=== PATIENT | male | born 1950 | race African-American/Black ===

== ENCOUNTER 2017-04-30 09:14 | Observation (INO) | payer OTHER, BC ==
[2017-04-30 09:26] VITALS: BMI 26.7
[2017-04-30 10:21] LABS: BASOPHIL 0.3 % (0-2.0); EOSINOPHIL 0.4 % (0-4.5); MCH 25.7 pg (25.7-33.7); MCHC 31.9 g/dl (32.0-35.9); MEAN CELL VOLUME 80.4 fl (80-96); MEAN PLT VOLUME 7.2 fl (7.5-11.1); PLATELET COUNT 175 K/MM3 (134-434); RDW 17.1 % (11.9-15.9); WHITE BLOOD COUNT 13.8 K/mm3 (4.0-10.0)
[2017-04-30 10:38] LABS: INR 1.41 (0.82-1.09); PROTHROMBIN TIME (PATIENT) 15.6 SEC (9.98-11.88)
--- NOTE | 2017-04-30 10:38 | PDOC ---
Attending Attestation - Resident Resident Name: DavidScottieFlash - ED Attending Attestation I have performed the following: I have examined & evaluated the patient, The case was reviewed & discussed with the resident, I agree w/resident's findings & plan, Exceptions are as noted - HPI HPI: 04/30/17 10:32 66 year old male with past medical history of coronary disease status post CABG , mitral valve replacement on a requests, prior history of intracranial hemorrhage and stroke presents with lower extremity swelling and generalized weakness. The patient reports one month of increasing lower extremity edema which has been attempted to manage as an outpatient with oral medications, which I suspect are diuretics. Patient then noticed today that his chronic left sided weakness has worsened and noticed that his lower extremities were tingling but denies worsening numbness. States that his lower extremities were were swollen with right more to the left. Denies chest pain or shortness of breath. Denies recent illnesses fevers, chills, cough. Given his generalized weakness and increasing lower extremity edema, the patient came into the ED. - Physicial Exam PE: 04/30/17 10:32 GENERAL: Awake, alert, and fully oriented, in no acute distress. But appears generally weak and chronically debilitated. HEAD: No signs of trauma EYES: PERRLA, EOMI, sclera anicteric, conjunctiva clear ENT: Auricles normal inspection, hearing grossly normal, nares patent, oropharynx clear without exudates. NECK: Normal ROM, supple, no lymphadenopathy, JVD, or masses LUNGS: Breath sounds equal, clear to auscultation bilaterally. No wheezes, and no crackles HEART: Regular rate and rhythm, normal S1 and S2, no murmurs, rubs or gallops. Tachycardic. ABDOMEN: Soft, nontender, normoactive bowel sounds. No guarding, no rebound. No masses EXTREMITIES: Normal range of motion, No clubbing or cyanosis. No cords, erythema , or tenderness. Mild pedal edema bilaterally. Facundo sign negative. NEUROLOGICAL: Cranial nerves II through XII intact. Normal speech, normal gait. No pronator drift, 5/5 strength upper and lower extremities. Sensation intact everywhere. Speech normal. 4/5 strength LLE vs. 5/5 strength RLE. SKIN: Warm, Dry, normal turgor, no rashes or lesions noted. - Medical Decision Making 04/30/17 10:36 Vital Signs Temp Pulse Resp BP Pulse Ox 97.9 F 102 H 18 121/71 99 04/30/17 10:30 04/30/17 10:30 04/30/17 10:30 04/30/17 10:30 04/30/17 10:30 The patient overall appears deconditioned. The differential is broad and includes cardiac, neurologic including recurrence of intracranial hemorrhage, CVA, infectious or metabolic. We'll obtain duplex to rule out lower extremity DVTs. The patient has been complaint but lower extremity edema which may be secondary to cardiac such as congestive heart failure. Reassess. Incidentally, patient is also been complained about right elbow olecranon bursitis. No fevers or chills. No overlying erythema. Supportive care ( compression). 04/30/17 11:26 CBC, BMP 04/30/17 10:15 04/30/17 10:15 CMP Sodium 136 mmol/L (136-145) 04/30/17 10:15 Potassium 4.7 mmol/L (3.5-5.1) 04/30/17 10:15 Chloride 102 mmol/L (98-107) 04/30/17 10:15 Carbon Dioxide 26 mmol/L (21-32) 04/30/17 10:15 Anion Gap 8 (8-16) 04/30/17 10:15 BUN 27 mg/dL (7-18) H D 04/30/17 10:15 Creatinine 1.9 mg/dL (0.7-1.3) H D 04/30/17 10:15 Creat Clearance w eGFR 35.64 (>60) 04/30/17 10:15 Random Glucose 99 mg/dL (74-106) D 04/30/17 10:15 Calcium 9.1 mg/dL (8.5-10.1) D 04/30/17 10:15 Phosphorus 2.9 mg/dL (2.5-4.9) D 04/30/17 10:15 Magnesium 1.9 mg/dL (1.8-2.4) D 04/30/17 10:15 Total Bilirubin 1.0 mg/dL (0.2-1.0) D 04/30/17 10:15 AST 18 U/L (15-37) D 04/30/17 10:15 ALT 26 U/L (12-78) D 04/30/17 10:15 Alkaline Phosphatase 150 U/L (45-117) H D 04/30/17 10:15 Creatine Kinase 90 IU/L (39-308) 04/30/17 10:15 Troponin I < 0.02 ng/ml (0.00-0.05) D 04/30/17 10:15 B-Natriuretic Peptide 706.42 pg/ml (5-125) H 04/30/17 10:15 Total Protein 7.4 g/dl (6.4-8.2) D 04/30/17 10:15 Albumin 3.4 g/dl (3.4-5.0) D 04/30/17 10:15 Urine Test Results Urine Color Yellow 04/30/17 10:07 Urine Appearance Cloudy 04/30/17 10:07 Urine pH 8.0 (5.0-8.0) D 04/30/17 10:07 Urine Protein 1+ (NEGATIVE) H 04/30/17 10:07 Urine Glucose (UA) Negative (NEGATIVE) 04/30/17 10:07 Urine Ketones Negative (NEGATIVE) 04/30/17 10:07 Urine Blood 1+ (NEGATIVE) H 04/30/17 10:07 Urine Nitrite Negative (NEGATIVE) 04/30/17 10:07 Urine Bilirubin Negative (NEGATIVE) 04/30/17 10:07 Ur Leukocyte Esterase 3+ (NEGATIVE) H 04/30/17 10:07 Urine RBC 6 /hpf (0-3) 04/30/17 10:07 Urine WBC 464 /hpf (3-5) 04/30/17 10:07 Ur Epithelial Cells Rare /hpf (FEW) 04/30/17 10:07 Urine Bacteria Rare /hpf (NONE SEEN) 04/30/17 10:07 Urine Mucus Rare 04/30/17 10:07 Chest x-ray reviewed. Demonstrates cardiomegaly. Patient noted here to have an elevated white count 13 and an urinary tract infection with acute kidney injury. Though the BNP is elevated, I suspect the patient is clinically dry. We'll trial 500 mL of normal saline. Micrology reviewed which demonstrates history of staph aureus. It is sensitive to ceftriaxone. We'll write for ceftriaxone. We'll admit the patient to the hospital for further evaluation. Heart Score/ECG Review #1 ECG reviewed & interpreted by me at: 10:25 04/30/17 10:35 NSR 100, no std/janie, Q wave II, III, avF, no std/janie, T wave flat I, AVL, QTC 459 msec. Q wave Q6.
[2017-04-30 10:46] LABS: ALBUMIN 3.4 g/dl (3.4-5.0); ANION GAP 8 (8-16); CALCIUM 9.1 mg/dL (8.5-10.1); CO2 26 mmol/L (21-32); CREATININE 1.9 mg/dL (0.7-1.3); GLUCOSE,RANDOM 99 mg/dL (74-106); SGOT/AST 18 U/L (15-37); SGPT/ALT 26 U/L (12-78); TOT PROT 7.4 g/dl (6.4-8.2)
[2017-04-30 10:48] LABS: ALK PHOS 150 U/L (45-117); CPK 90 IU/L (39-308); TROPONIN I < 0.02 ng/ml (0.00-0.05)
--- NOTE | 2017-04-30 10:51 | PDOC ---
History of Present Illness - General Chief Complaint: Weakness Stated Complaint: PAIN Time Seen by Provider: 04/30/17 09:38 - History of Present Illness Initial Comments: 04/30/17 10:45 66 yo M with h/o ICH, SAH, MVR, and CABG who presents with lower extremity pain and weakness. Pt. reports increased lower extremity swelling and pain over the past month. Has noticed that right leg is more swollen than left leg. Denies burning of distal extremities. Also complains of increased tingling without no change in numbness within the past week. Today pt. notices increased left sided weakness from baseline. Denies SOB, N/V, hemoptysis, fevers/chills, GI, or complaints. Recently switched to Eliquis from Warfarin. Denies recent trauma or surgery, h/o malignancy, h/o DVT/PE, or plane flights. Reports that he took 10 hour trip to [facility] March 02. PCP Víctor Leon 04/30/17 12:17 Past History - Past Medical History Allergies/Adverse Reactions: Allergies Allergy/AdvReac Type Severity Reaction Status Date / Time No Known Allergies Allergy Verified 04/30/17 09:26 Home Medications: Ambulatory Orders Apixaban [Eliquis] 5 mg PO BID 04/30/17 Doxycycline Monohydrate [Mondoxyne Nl] 0 mg PO BID 04/30/17 Furosemide [Lasix] 40 mg PO DAILY 04/30/17 Levetiracetam [Keppra -] 1,250 mg PO DAILY 04/30/17 Potassium Chloride [K-Dur -] 0 meq PO DAILY 04/30/17 Cardiac Disorders: Yes (MVP-VALVE REPLACED) CVA: Yes - Surgical History Cardiac Surgery: Yes (MVP-VALVE REPLACED-ON COUMADIN) - Psycho/Social/Smoking Cessation Hx Suicidal Ideation: No Smoking History: Current every day smoker Have you smoked in the past 12 months: Yes Number of Cigarettes Smoked Daily: 10 Information on smoking cessation initiated: No Hx Alcohol Use: No Drug/Substance Use Hx: No Review of Systems - Review of Systems Comments:: 04/30/17 10:57 GENERAL/CONSTITUTIONAL: No fever or chills. No weakness. HEAD, EYES, EARS, NOSE AND THROAT: No change in vision. No ear pain or discharge. No sore throat.- CARDIOVASCULAR: No chest pain or shortness of breath RESPIRATORY: No cough, wheezing, or hemoptysis. GASTROINTESTINAL: No nausea, vomiting, diarrhea or constipation. GENITOURINARY: No dysuria, frequency, or change in urination. MUSCULOSKELETAL: + Leg swelling pain. No joint or muscle swelling or pain. No neck or back pain. SKIN: No rash NEUROLOGIC: No headache, vertigo, loss of consciousness, or change in strength/ sensation. ENDOCRINE: No increased thirst. No abnormal weight change HEMATOLOGIC/LYMPHATIC: No anemia, easy bleeding, or history of blood clots. ALLERGIC/IMMUNOLOGIC: No hives or skin allergy. *Physical Exam - Vital Signs Last Vital Signs Temp Pulse Resp BP Pulse Ox 97.9 F 102 H 18 121/71 99 04/30/17 10:30 04/30/17 10:30 04/30/17 10:30 04/30/17 10:30 04/30/17 10:30 - Physical Exam Comments: 04/30/17 10:57 GENERAL: Awake, alert, and fully oriented, in no acute distress HEAD: No signs of trauma, normocephalic, atraumatic EYES: PERRLA, EOMI, sclera anicteric, conjunctiva clear ENT: Auricles normal inspection, hearing grossly normal, nares patent, oropharynx clear without exudates. Moist mucosa NECK: Normal ROM, supple, no lymphadenopathy, JVD, or masses LUNGS: No distress, speaks full sentences, clear to auscultation bilaterally HEART: Regular rate and rhythm, normal S1 and S2, no murmurs, rubs or gallops, peripheral pulses normal and equal bilaterally. EXTREMITIES: Normal inspection, Normal range of motion, no edema. No clubbing or cyanosis. NEUROLOGICAL: 4/5 LLE gross motor strenght. 5/5 UE and RLE. Sensation intact. Normal DIEUDONNE, and absent dysmetria on FTN. Cranial nerves II through XII grossly intact. Normal speech, normal gait, no focal sensorimotor deficits SKIN: Warm, Dry, normal turgor, no rashes or lesions noted. Heart Score/ECG Review - History History: Slightly suspicious - Electrocardiogram EKG: Non specific repolarization disturbance - Age Age: >/= 65 - Risk Factors Risk Factors Heart Score: Yes Hx Hypertension, Yes Hx Diabetes, Yes Positive family hx of cardiac disease Based on the list above the patient has:: >/=3 risk factors or Hx atherosclerotic disease - Troponin Troponin: </= normal limit - Score Heart Score - Total: 5 - ECG Intrepretation Rhythm: Regular Rhythm - [place]: Left [place] Deviation - P and ND Atrial Enlargement: Left - ECG Impressions Ischemic Changes: Yes ED Treatment Course - LABORATORY CBC & Chemistry Diagram: 04/30/17 10:15 04/30/17 10:15 - ADDITIONAL ORDERS Additional order review: Laboratory Results 04/30/17 04/30/17 10:15 10:15 INR 1.41 H Creatine Kinase Cancelled Troponin I Cancelled B-Natriuretic Peptide Cancelled 04/30/17 10:15 RBC 4.94 MCV 80.4 MCHC 31.9 L RDW 17.1 H MPV 7.2 L D Neutrophils % 77.0 Lymphocytes % 10.8 D Monocytes % 11.5 H D Eosinophils % 0.4 D Basophils % 0.3 - RADIOLOGY Radiology Studies Ordered: Category Date Time Status CXRPORT [CHEST X-RAY PORTABLE*] [RAD] Stat Radiology 04/30/17 10:07 Taken DUPLEX VASCUL US-2LEGS [US] Stat Ultrasound 04/30/17 10:07 Ordered Radiograph Interpretation: 04/30/17 12:41 EXAM#: TYPE/EXAM: RESULT: [id number] CT/HEAD CT WITHOUT CONTRAST Cranial CT without contrast Clinical information: history of intracranial hemorrhage, increased left-sided weakness No current intracranial hemorrhage is infarct. In comparison to a prior CT study of 11/07/2016 there has been interval resolution of a small amount of subarachnoid blood and parenchymal blood along the frontoparietal convexities bilaterally and within the left occipital lobe. At the site of a right posterior frontal subcortical hemorrhage note is made of development of a 1.5 cm focus of encephalomalacia. The remainder of the exam demonstrates no definite interval change. No acute infarct is identified within the limitations of CT. Chronic left basal ganglia infarcts. Left frontal parietal subcortical gliosis probably due to chronic infarcts. Mild ex-vacuo dilatation of the frontal horn of the left lateral ventricle due to adjacent chronic infarct. No obvious mass lesion is identified on noncontrast imaging. There is no extra-axial fluid collection. Impression: No definite CT evidence of acute intracranial pathology. Chronic findings as discussed above. Medical Decision Making - Medical Decision Making 04/30/17 10:59 66 yo M with h/o ICH, SAH, MVR, and CABG who presents with lower extremity pain and weakness. Pt. reports increased weakness and lower extremity swelling and pain over the past month. Differential includes CVA, ICH, CHF exacerbation and possible infection. ED Course: CBC, CMP, UA, Cardiac labs EKG, CXR CT head BL LE U/S UA: 3 + Leuk Esterase, 1+ blood CBC: 13.8 WBC CMP: 27 BUN, 1.9 CR 1 gm IVPB Ceftriaxone, 500 ml NS 04/30/17 11:43 Heart Score 4-6 ( MACE 13%) CT Head: Impression: No definite CT evidence of acute intracranial pathology. 04/30/17 14:08 Duplex vascular U/S 2 Legs: No evidence of DVT 04/30/17 14:[address] Rousseau. *DC/Admit/Observation/Transfer Diagnosis at time of Disposition: BILLY (acute kidney injury) - Discharge Dispostion Condition at time of disposition: Good Admit: Yes
[2017-04-30 10:55] LABS: URINE APPEARANCE CLOUDY; URINE BILIRUBIN NEGATIVE (NEGATIVE); URINE BLOOD 1+ (NEGATIVE); URINE COLOR YELLOW; URINE GLUCOSE (UA) NEGATIVE (NEGATIVE); URINE KETONE NEGATIVE (NEGATIVE); URINE LEUK ESTERASE 3+ (NEGATIVE); URINE NITRITE NEGATIVE (NEGATIVE); URINE PROTEIN 1+ (NEGATIVE); URINE UROBILINOGEN NEGATIVE mg/dL (0.2-1.0)
[2017-04-30 11:03] LABS: URINE BACTERIA RARE /hpf (NONE SEEN); URINE HYALINE CAST 2 /lpf; URINE MUCUS RARE; URINE RBC 6 /hpf (0-3); URINE WBC 464 /hpf (3-5)
[2017-04-30] MEDS ORDERED: SODIUM CHLORIDE 500 ML IV STA (11:09)
[2017-04-30] MEDS ORDERED: CEFTRIAXONE 1 GM in DEXTROSE 5%-WATER - 50 ML IVPB ONE (11:09)
[2017-04-30 11:11] LABS: MAGNESIUM 1.9 mg/dL (1.8-2.4); PHOSPHOROUS 2.9 mg/dL (2.5-4.9)
[2017-04-30] MEDS ORDERED: CEFTRIAXONE 50 ML ONE (11:21)
[2017-04-30] MEDS ORDERED: ACETAMINOPHEN 325 MG TABLET (FP) PO PRN (13:58)
--- NOTE | 2017-04-30 14:29 | HP ---
Admitting History and Physical - Primary Care Physician PCP: Riaz Manley - Admission Chief Complaint: weakness in legs/ History of Present Illness: 66 yo M with h/o ICH, SAH,--11/10-- was transferred to [facility] at that time-- MVR,-- pt reports mechanical valve was taken out in 11/10 - and pig valve was placed -- CABG who presents with lower extremity pain and weakness. Pt. reports increased lower extremity swelling and pain over the past month. Has noticed that right leg is more swollen than left leg. Denies burning of distal extremities. Also complains of increased tingling without no change in numbness within the past week. Today pt. notices increased left sided weakness from baseline. Denies SOB , N/V, hemoptysis, fevers/chills, GI, or complaints. Recently switched to Eliquis from Warfarin last month by his pmd Denies recent trauma or surgery, h/o malignancy, h/o DVT/PE, or plane flights. Reports that he took 10 hour trip to [facility] March 02. pt given i/v abx for uti in er as well as received fluids. ct head -ve as well as u/s -ve for dvt. pt to be kept under observation . pt seen/ examined by me on floor above history taken from pt meds reviewed pt not sure about all meds but says not taking doxycycline pt feels better. denies cp/sob/ abd pain no headche/ dizziness no u/b trouble no fever/ chills History Source: Patient Limitations to Obtaining History: No Limitations - Past Medical History [employer]: Yes: CVA Cardiovascular: Yes: HTN, Other (mechanical mitral valve) Gastrointestinal: Yes: GERD Renal/: Yes: Renal Inusuff - Smoking History Smoking history: Current every day smoker Have you smoked in the past 12 months: Yes Aproximately how many cigarettes per day: 10 - Alcohol/Substance Use Hx Alcohol Use: No Home Medications - Allergies Allergies/Adverse Reactions: Allergies Allergy/AdvReac Type Severity Reaction Status Date / Time No Known Allergies Allergy Verified 04/30/17 09:26 - Home Medications Home Medications: Ambulatory Orders Apixaban [Eliquis] 5 mg PO BID 04/30/17 Doxycycline Monohydrate [Mondoxyne Nl] 0 mg PO BID 04/30/17 Furosemide [Lasix] 40 mg PO DAILY 04/30/17 Levetiracetam [Keppra -] 1,250 mg PO DAILY 04/30/17 Potassium Chloride [K-Dur -] 0 meq PO DAILY 04/30/17 Review of Systems Findings/Remarks: see [place] - Review of Systems Constitutional: reports: Weakness Eyes: reports: No Symptoms HENT: reports: No Symptoms Neck: reports: No Symptoms Cardiovascular: reports: No Symptoms Respiratory: reports: No Symptoms Gastrointestinal: reports: No Symptoms Genitourinary: reports: No Symptoms Musculoskeletal: reports: Muscle Weakness Neurological: reports: Pre-Existing Deficit (left side weakness) Psychiatric: reports: No Symptoms Physical Examination Vital Signs: Vital Signs Temperature 98.5 F 04/30/17 12:23 Pulse Rate 92 H 04/30/17 12:23 Respiratory Rate 18 04/30/17 12:23 Blood Pressure 109/78 04/30/17 12:23 O2 Sat by Pulse Oximetry (%) 96 04/30/17 12:23 Constitutional: Yes: No Distress, Calm Eyes: Yes: Conjunctiva Clear Neck: Yes: Supple, Trachea Midline Cardiovascular: Yes: Regular Rate and Rhythm Respiratory: Yes: Diminished (at bases) Gastrointestinal: Yes: Soft Edema: LLE: Trace, RLE: Trace Peripheral Pulses WNL: Yes Neurological: Yes: Alert, Pre-Existing Deficit (left side power 4/5-- right 5/5 cn- intact) Psychiatric: Yes: Alert Imaging - Results Chest X-ray: Report Reviewed Cat Scan: Report Reviewed Ultrasound: Report Reviewed EKG: Report Reviewed Problem List - Problems (1) Weakness Code(s): R53.1 - WEAKNESS (2) CAD (coronary artery disease) Code(s): I25.10 - ATHSCL HEART DISEASE OF [place] CORONARY ARTERY W/O ANG PCTRS (3) CVA (cerebrovascular accident due to intracerebral hemorrhage) Code(s): I61.9 - NONTRAUMATIC INTRACEREBRAL HEMORRHAGE, UNSPECIFIED (4) Renal insufficiency Code(s): N28.9 - DISORDER OF KIDNEY AND URETER, UNSPECIFIED (5) UTI (urinary tract infection) Code(s): N39.0 - URINARY TRACT INFECTION, SITE NOT SPECIFIED Assessment/Plan Observation. Got fluids-- will not continue- concern of chf abx monitor lytes on Eliquis with h/o recent bleed and h/o mechanical valve-- now pig valve per pt -- will ask cardiology to give input d/c doxy-- pt not taking physical therapy will follow. cc time 40 min in examining/ documenting and coordating care.
[2017-04-30] MEDS ORDERED: DOXYCYCLINE HYCLATE 100 MG CAPSULE PO SCH (18:00)
[2017-04-30] MEDS ORDERED: APIXABAN 5 MG TABLET PO SCH (22:00)
--- NOTE | 2017-04-30 22:03 | EKG ---
Test Reason : Blood Pressure : / mmHG Vent. Rate : 100 BPM Atrial Rate : 100 BPM P-R Int : 190 ms QRS Dur : 090 ms QT Int : 356 ms P-R-T Axes : 045 -37 062 degrees QTc Int : 459 ms NORMAL SINUS RHYTHM POSSIBLE LEFT ATRIAL ENLARGEMENT LEFT AXIS DEVIATION CANNOT RULE OUT LATERAL INFARCT (CITED ON OR BEFORE 22-AUG-2007) INFERIOR-POSTERIOR INFARCT (CITED ON OR BEFORE 22-AUG-2007) ABNORMAL ECG WHEN COMPARED WITH ECG OF 07-NOV-2016 09:29, VENT. RATE HAS INCREASED T WAVE INVERSION IS NO LONGER SEEN Confirmed by DAYO FRANCO MD ([id number]) on 04/30/2017 10:03:26 PM Referred By: Confirmed By:DAYO FRANCO MD
[2017-05-01 07:38] LABS: BASOPHIL 0.3 % (0-2.0); EOSINOPHIL 1.6 % (0-4.5); MCHC 31.7 g/dl (32.0-35.9); MEAN PLT VOLUME 7.9 fl (7.5-11.1); NEUTROPHILS 68.5 % (42.8-82.8); PLATELET COUNT 175 K/MM3 (134-434); RDW 17.3 % (11.9-15.9); WHITE BLOOD COUNT 8.2 K/mm3 (4.0-10.0)
[2017-05-01 07:47] LABS: ALBUMIN 3.3 g/dl (3.4-5.0); ANION GAP 10 (8-16); CALCIUM 9.1 mg/dL (8.5-10.1); CO2 25 mmol/L (21-32); CREATININE 1.5 mg/dL (0.7-1.3); GLUCOSE,RANDOM 85 mg/dL (74-106); MAGNESIUM 2.1 mg/dL (1.8-2.4); SGOT/AST 16 U/L (15-37); SGPT/ALT 24 U/L (12-78)
[2017-05-01 07:49] LABS: ALK PHOS 141 U/L (45-117); BILIRUBIN,TOTAL 1.2 mg/dL (0.2-1.0); TOT PROT 7.4 g/dl (6.4-8.2)
[2017-05-01] MEDS ORDERED: FUROSEMIDE 40 MG TABLET (FP) PO SCH (10:00)
[2017-05-01] MEDS ORDERED: cefTRIAXone SODIUM 1 GM VIAL ONE (10:37)
[2017-05-01] MEDS ORDERED: DEXTROSE 5%-WATER - 50 ML IVPB ONE (10:37)
[2017-05-01] MEDS: CEFTRIAXONE 1 GM in DEXTROSE 5%-WATER - 50 ML IVPB SCH (10:46)
[2017-05-01] MEDS: levETIRAcetam 500 MG TABLET (FP) PO SCH (10:47)
--- NOTE | 2017-05-01 12:36 | CON.CARD ---
Cardiology Consult (text) - Consultation Consultation Note: CC: LE weakness 66 yo M with h/o ICH, SAH on coumadin,--11/10, per report at that time mechanical MVR replaced with bioprosthetic mvr in addition to possible cabg, also with h/o prior cva, mild systolic chf, htn, gerd, ckd who presents with lower extremity (ankle) edema and weakness. Pt. reports increased lower extremity swelling, weakness (left sided weakness at baseline since SAH), paresthesias over the past month since stopping physical therapy. Has noticed that right leg is more swollen than left leg. Denies burning of distal extremities. LE dopplers here negative for dvt. Denies SOB, orthopnea, pnd, cp, denies N/V/diarrhea, fevers/chills/sweats, rashes, headache, cough, congestion. May have remained on a blood thinner. states he may be taking eliquis. received 500 cc bolus in ER with improvement in cr today. pmhx/pshx: per hpi social hx: former smoker. since leaving inpatient rehab is back to living by himself. family hx: no hx of premature cad ros: per hpi Ambulatory Orders Apixaban [Eliquis] 5 mg PO BID 04/30/17 Doxycycline Monohydrate [Mondoxyne Nl] 0 mg PO BID 04/30/17 Furosemide [Lasix] 40 mg PO DAILY 04/30/17 Levetiracetam [Keppra -] 1,250 mg PO DAILY 04/30/17 Potassium Chloride [K-Dur -] 0 meq PO DAILY 04/30/17 Current Medications Acetaminophen (Tylenol -) 650 mg PO Q4H PRN PRN Reason: FEVER OR PAIN Furosemide (Lasix -) 40 mg PO DAILY [facility] Last Admin: 05/01/17 10:48 Dose: 40 mg Ceftriaxone Sodium 1 gm/ (Dextrose) 50 mls @ 100 mls/hr IVPB DAILY [facility] Last Admin: 05/01/17 10:46 Dose: 100 mls/hr Levetiracetam (Keppra -) 1,250 mg PO DAILY [facility] Last Admin: 05/01/17 10:47 Dose: 1,250 mg Vital Signs - 24 hr 04/30/17 04/30/17 04/30/17 14:00 17:51 20:01 Temperature 98 F Pulse Rate 88 97 H Respiratory 18 18 18 Rate Blood Pressure 110/64 111/74 O2 Sat by Pulse 96 Oximetry (%) 04/30/17 05/01/17 05/01/17 23:00 03:00 05:24 Temperature 97.8 F Pulse Rate 99 H 95 H Respiratory 18 18 18 Rate Blood Pressure 101/60 105/68 O2 Sat by Pulse 96 Oximetry (%) 05/01/17 05/01/17 05:36 10:00 Temperature 97.9 F 97.9 F Pulse Rate 90 103 H Respiratory 18 18 Rate Blood Pressure 98/70 106/64 O2 Sat by Pulse Oximetry (%) Intake & Output 04/29/17 04/30/17 05/01/17 05/02/17 07:59 07:59 07:59 07:59 Intake Total 475 Output Total 1 Balance -1 475 Weight 203 lb nad, calm jvd flat, neck supple ctab, nl effort rrr nl s1, s2 no mrg + bs soft nt nd ext without e/c/c + varicosities. + dp/pt aaox3 no jaundice, diaphoresis no carotid bruits CBC, BMP 05/01/17 05:35 05/01/17 05:35 Laboratory Tests 11/06/16 04/30/17 04/30/17 19:15 10:15 10:15 INR 1.41 H Total Bilirubin 1.0 D AST 18 D ALT 26 D Alkaline Phosphatase 150 H D Creatine Kinase 90 Troponin I < 0.02 D B-Natriuretic Peptide 4358.59 H 706.42 H Albumin 05/01/17 05:35 INR Total Bilirubin 1.2 H AST 16 ALT 24 Alkaline Phosphatase 141 H Creatine Kinase Troponin I B-Natriuretic Peptide Albumin 3.3 L 05/01/17 05:35 Troponin I < 0.02 ekg: nsr, 100 bpm. lad. tall r waves in anterior precordial leads. low voltage in limb leads. inferior and lateral q waves. non-specific t wave ab le dopplers neg for dvt head ct: no acute pathology cxr no chf echo 10/2016: mild lv dilation. mildy reduced LV systolic function. grossly nl rv size. no mention of rv fn. mod rustam. mechanical MV (can't exclude veg). mod ms. 66 yo M with h/o ICH, SAH on coumadin,--11/10, per report at that time mechanical MVR replaced with bioprosthetic mvr in addition to possible cabg, also with h/o prior cva, mild systolic chf, htn, gerd, ckd who presents with lower extremity (ankle) edema and weakness. mild systolic cardiomyopathy - repeat echo pending. - patient does not appear volume overloaded. cxr without congestion. unable to appreciate LE edema on exam. bnp down from priors. cr improved after 500 cc bolus yesterday. - would obtain orthostatic vitals tomorrow before resuming home PO lasix. daily standing weights. bioprosthetic mvr - changed from mechanical mvr to bioprosthetic mvr in october during admit for ich /sah. unclear whether patient was changed due to endocarditis (possible veg noted on tte here at the time, or if pt no longer candidate for AC due to intracranial bleed vs. other reason. Would try to obtain clarification from pmd. - at this time should only require ASA for bioMVR, but patient endorses being on AC. Would hold AC until AC regimen and indication is clarified. cad s/p ? cabg - If asa safe, would resume. would initiate statin. - no evidence of acs. ce's neg x 2 over 24 hour period. no acute ischemic changes on ekg. no anginal symptoms. htn - bp running low. not on anti-htn regimen at home based on home med list. - orthostatic vitals as above. infectious eval per pmd h/o cva prior to 2016 - ASA/AC clarification as above. adding statin. LE weakness/paresthesias - unclear if new or residual from 10/2016 ich/sah. mgm't per pmd. - LE dopplers neg for dvt. ckd - cr improved with ivf.
--- NOTE | 2017-05-01 13:53 | PN ---
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 He had tracheostomy and peg tube at that time--Long admission from October to December and them transferred to [facility] rehab till March. He lives at home with . He feels better now since admission - Current Medication List Current Medications: Active Medications Acetaminophen (Tylenol -) 650 mg PO Q4H PRN PRN Reason: FEVER OR PAIN Furosemide (Lasix -) 40 mg PO DAILY [facility] Last Admin: 05/01/17 10:48 Dose: 40 mg Ceftriaxone Sodium 1 gm/ (Dextrose) 50 mls @ 100 mls/hr IVPB DAILY [facility] Last Admin: 05/01/17 10:46 Dose: 100 mls/hr Levetiracetam (Keppra -) 1,250 mg PO DAILY [facility] Last Admin: 05/01/17 10:47 Dose: 1,250 mg - Objective Vital Signs: Vital Signs Temperature 97.9 F 05/01/17 10:00 Pulse Rate 103 H 05/01/17 10:00 Respiratory Rate 18 05/01/17 10:00 Blood Pressure 106/64 05/01/17 10:00 O2 Sat by Pulse Oximetry (%) 96 05/01/17 05:24 Constitutional: Yes: No Distress Cardiovascular: Yes: Regular Rate and Rhythm, Murmur Respiratory: Yes: CTA Bilaterally Gastrointestinal: Yes: Normal Bowel Sounds, Soft. No: Distention, Tenderness Edema: No Neurological: Yes: Alert, Oriented. No: Ataxia, Numbness, Paresthesia, Tremors , Weakness Psychiatric: Yes: Alert, Oriented Labs: CBC, BMP 05/01/17 05:35 05/01/17 05:35 INR, PTT INR 1.41 (0.82-1.09) H 04/30/17 10:15 Problem List - Problems (1) BILLY (acute kidney injury) Code(s): N17.9 - ACUTE KIDNEY FAILURE, UNSPECIFIED (2) CAD (coronary artery disease) Code(s): I25.10 - ATHSCL HEART DISEASE OF [place] CORONARY ARTERY W/O ANG PCTRS (3) CVA (cerebrovascular accident due to intracerebral hemorrhage) Code(s): I61.9 - NONTRAUMATIC INTRACEREBRAL HEMORRHAGE, UNSPECIFIED (4) Renal insufficiency Code(s): N28.9 - DISORDER OF KIDNEY AND URETER, UNSPECIFIED (5) UTI (urinary tract infection) Code(s): N39.0 - URINARY TRACT INFECTION, SITE NOT SPECIFIED Assessment/Plan PLAN No need for STR Pt on Ceftriaxone for UTI Awaiting culture Afebrile Cardiology eval Echo ordered continue with meds Hold Eliquis as it is BVR PT eval
[2017-05-01 15:22] LABS: CPK 116 IU/L (39-308); TROPONIN I < 0.02 ng/ml (0.00-0.05)
[2017-05-02] MEDS ORDERED: cefTRIAXone SODIUM 1 GM VIAL ONE (08:59)
[2017-05-02] MEDS ORDERED: DEXTROSE 5%-WATER - 50 ML IVPB ONE (09:00)
[2017-05-02] MEDS: CEFTRIAXONE 1 GM in DEXTROSE 5%-WATER - 50 ML IVPB SCH (09:29)
[2017-05-02] MEDS: levETIRAcetam 500 MG TABLET (FP) PO SCH (09:30)
--- NOTE | 2017-05-02 14:15 | DS ---
Physical Examination Vital Signs: Vital Signs Temperature 97.7 F 05/02/17 06:00 Pulse Rate 98 H 05/02/17 10:00 Respiratory Rate 18 05/02/17 10:00 Blood Pressure 93/62 05/02/17 10:00 O2 Sat by Pulse Oximetry (%) 95 05/02/17 05:29 Constitutional: Yes: No Distress, Calm Cardiovascular: Yes: Regular Rate and Rhythm, Murmur Respiratory: Yes: CTA Bilaterally Gastrointestinal: Yes: Normal Bowel Sounds. No: Tenderness Edema: No Labs: CBC, BMP 05/01/17 05:35 05/01/17 05:35 Discharge Summary Reason For Visit: ACUTE KIDNEY INJURY Current Active Problems BILLY (acute kidney injury) (Acute) CAD (coronary artery disease) (Acute) CVA (cerebrovascular accident due to intracerebral hemorrhage) (Acute) Renal insufficiency (Acute) UTI (urinary tract infection) (Acute) Weakness (Acute) Hospital Course: Admitted for generalized weakness and renal failure was on iv fluids On Ceftriaxone for UTI Cultures negative and now Ceftriaxone dc Echo done-- mild LV systolic dysfunction Has dilated aortic root on echo Creatinine still elevated Seen by cardiology-- no need for AC as he has Bio prosthetic valve will need CT chest with ocntrast to assess aortic root stable for dc home advised to follow with PMD and Cardiology as outpt Condition: Good - Instructions Diet, Activity, Other Instructions: Echo shows dilated aortic root-- will need CT chest with iv contrast once renal function is normal Referrals: Elvia Molina MD [Staff Physician] - Riaz Manley MD [Primary Care Provider] - Disposition: HOME - Home Medications Comprehensive Discharge Medication List: Ambulatory Orders Apixaban [Eliquis] 5 mg PO BID 04/30/17 Doxycycline Monohydrate [Mondoxyne Nl] 0 mg PO BID 04/30/17 Furosemide [Lasix] 40 mg PO DAILY 04/30/17 Levetiracetam [Keppra -] 1,250 mg PO DAILY 04/30/17 Potassium Chloride [K-Dur -] 0 meq PO DAILY 04/30/17
[2017-05-02 14:24] VITALS: BP 103/65; PULSE 86; TEMP 98
[2017-05-02] MEDS ORDERED: ATORVASTATIN CA 40 MG TABLET (FP) PO SCH (22:00)
== END 2017-05-02 14:50 | disposition home or self-care (01) ==
LOC: JER 09:14 → JERBED 13:06 → UNDOADMOB 13:06 → INTOOBSV 13:06 → J6S 13:58 → JERBED 14:10
PROVIDERS: ADMIT Internal Medicine; ATTEND Internal Medicine
PROC: 3E03329 Introduction of Other Anti-infective into Peripheral Vein, Percutaneous Approach (ICD-10-PCS; principal; 2017-04-30)
PROC: 3E0337Z Introduction of Electrolytic and Water Balance Substance into Peripheral Vein, Percutaneous Approach (ICD-10-PCS; 2017-04-30)
DX: N17.9 Acute kidney failure, unspecified (principal); I10 Essential (primary) hypertension; I61.9 Nontraumatic intracerebral hemorrhage, unspecified; I25.10 Atherosclerotic heart disease of native coronary artery without angina pectoris; E11.9 Type 2 diabetes mellitus without complications; K21.9 Gastro-esophageal reflux disease without esophagitis; F17.210 Nicotine dependence, cigarettes, uncomplicated; N28.9 Disorder of kidney and ureter, unspecified; N39.0 Urinary tract infection, site not specified; R53.1 Weakness; Z86.73 Personal history of transient ischemic attack (TIA), and cerebral infarction without residual deficits; Z95.1 Presence of aortocoronary bypass graft; Z95.2 Presence of prosthetic heart valve; Z79.01 Long term (current) use of anticoagulants; I42.8 Other cardiomyopathies
CPT/HCPCS: 36415; 70450-TC; 71010-TC; 80053; 81003; 81015; 83735; 83880; 84100; 84484; 85025; 85610; 87086; 93005; 93010; 93306-TC; 93970-TC; 97116-GP; 97161-GP; 99284-25; G0378

== ENCOUNTER 2018-05-11 18:07 | Emergency (ER) | payer OTHER ==
[2018-05-11 18:14] VITALS: TEMP 98.2; BMI 26.4
[2018-05-11] MEDS ORDERED: SODIUM CHLORIDE 500 ML IV STA (18:24)
--- NOTE | 2018-05-11 18:47 | PDOC ---
History of Present Illness - General History Source: Patient Exam Limitations: No Limitations - History of Present Illness Initial Comments: 05/11/18 18:35 Patient is a 67M with history of mitral valve replacement (on eliquis), CHF, hemorrhagic stroke here today complaining of weakness in his legs. Patient's reports that she called an ambulance because he was unable to walk up the stairs to his apartment. Patient reports being outside at a [employer] party today and drinking. Denies smoking and illicits. Patient states that he has no pain, and just thinks that he drinks too much. denies facial droop and unilateral leg weakness. <Luis Jarrett - Last Filed: 05/11/18 19:04> <Clemente Haskins - Last Filed: 05/11/18 23:44> - General Chief Complaint: Weakness Stated Complaint: WEAKNESS Time Seen by Provider: 05/11/18 18:13 Past History - Past Medical History Cardiac Disorders: Yes (MVP-VALVE REPLACED, CABG) CVA: Yes COPD: No Diabetes: Yes HTN: Yes - Surgical History Cardiac Surgery: Yes (MVP-VALVE REPLACED) - Suicide/Smoking/Psychosocial Hx Smoking History: Current every day smoker Have you smoked in the past 12 months: Yes Number of Cigarettes Smoked Daily: 10 Information on smoking cessation initiated: No 'Breaking Loose' booklet given: 04/30/17 Hx Alcohol Use: No Drug/Substance Use Hx: No <Luis Jarrett - Last Filed: 05/11/18 19:04> <Clemente Haskins - Last Filed: 05/11/18 23:44> - Past Medical History Allergies/Adverse Reactions: Allergies Allergy/AdvReac Type Severity Reaction Status Date / Time No Known Allergies Allergy Verified 05/11/18 18:11 Home Medications: Ambulatory Orders Sacubitril/Valsartan [Entresto 49 mg-51 mg Tablet] 1 tab PO BID 05/11/18 Torsemide 100 mg PO BID 05/11/18 Review of Systems - Review of Systems Comments:: 05/11/18 18:40 GENERAL/CONSTITUTIONAL: No fever or chills. +weakness. HEAD, EYES, EARS, NOSE AND THROAT: No change in vision. No sore throat. CARDIOVASCULAR: No chest pain or shortness of breath RESPIRATORY: No cough, wheezing, or hemoptysis. GASTROINTESTINAL: No nausea, vomiting, diarrhea or constipation. GENITOURINARY: No dysuria, frequency, or change in urination. MUSCULOSKELETAL: No joint or muscle swelling or pain. No neck or back pain. SKIN: No rash NEUROLOGIC: No headache, vertigo, loss of consciousness, or change in strength/ sensation. ENDOCRINE: No increased thirst. No abnormal weight change HEMATOLOGIC/LYMPHATIC: No anemia, easy bleeding, or history of blood clots. ALLERGIC/IMMUNOLOGIC: No hives or skin allergy. <Luis Jarrett - Last Filed: 05/11/18 19:04> *Physical Exam - Vital Signs Last Vital Signs Temp Pulse Resp BP Pulse Ox 98.2 F 96 H 18 82/58 93 L 05/11/18 18:12 05/11/18 18:12 05/11/18 18:12 05/11/18 18:12 05/11/18 18:12 - Physical Exam Comments: 05/11/18 18:47 GENERAL: Awake, alert, and fully oriented, in no acute distress, smells of alcohol HEAD: No signs of trauma, normocephalic, atraumatic EYES: PERRLA, EOMI, sclera anicteric, conjunctiva clear ENT: Auricles normal inspection, hearing grossly normal, nares patent, oropharynx clear without exudates. Moist mucosa NECK: Normal ROM, supple, no lymphadenopathy, JVD, or masses LUNGS: No distress, speaks full sentences, clear to auscultation bilaterally HEART: Regular rate and rhythm, normal S1 and S2, no murmurs, rubs or gallops, peripheral pulses normal and equal bilaterally. ABDOMEN: Soft, nontender, normoactive bowel sounds. No guarding, no rebound. No masses EXTREMITIES: Normal inspection, Normal range of motion, trace pitting edema bilaterally. No clubbing or cyanosis. NEUROLOGICAL: Cranial nerves II through XII grossly intact. Normal speech, no focal sensorimotor deficits SKIN: Warm, Dry, normal turgor, no rashes or lesions noted. <Luis Jarrett - Last Filed: 05/11/18 19:04> - Vital Signs Last Vital Signs Temp Pulse Resp BP Pulse Ox 98.2 F 89 16 107/77 93 L 05/11/18 18:12 05/11/18 19:00 05/11/18 19:00 05/11/18 23:03 05/11/18 18:12 <DivineClemente - Last Filed: 05/11/18 23:44> ED Treatment Course - LABORATORY CBC & Chemistry Diagram: 05/11/18 18:20 05/11/18 18:20 - RADIOLOGY Radiology Studies Ordered: Category Date Time Status HEAD CT WITHOUT CONTRAST [CT] Stat CT Scan 05/11/18 18:17 Ordered CHEST X-RAY PORTABLE* [RAD] Stat Radiology 05/11/18 18:14 Ordered <Luis Jarrett - Last Filed: 05/11/18 19:04> - LABORATORY CBC & Chemistry Diagram: 05/11/18 18:20 05/11/18 22:10 - ADDITIONAL ORDERS Additional order review: Laboratory Results 05/11/18 05/11/18 05/11/18 22:10 22:10 18:28 PT with INR INR Sodium 142 Potassium 4.6 Chloride 108 H Carbon Dioxide 26 Anion Gap 8 BUN 21 H Creatinine 2.1 H Creat Clearance w eGFR 31.66 Random Glucose 98 Lactic Acid 1.5 2.9 H* Calcium 8.5 Magnesium Total Bilirubin 0.3 AST 17 ALT 36 Alkaline Phosphatase 132 H Creatine Kinase Troponin I B-Natriuretic Peptide Total Protein 7.4 Albumin 3.8 Lipase Alcohol, Quantitative 05/11/18 05/11/18 05/11/18 18:20 18:20 18:20 PT with INR 11.30 INR 1.00 Sodium 142 Potassium 3.7 Chloride 106 Carbon Dioxide 22 Anion Gap 14 BUN 22 H Creatinine 2.4 H Creat Clearance w eGFR 27.14 Random Glucose 106 Lactic Acid Calcium 8.6 Magnesium 2.1 Total Bilirubin 0.3 AST 16 ALT 38 Alkaline Phosphatase 126 H Creatine Kinase 98 Troponin I < 0.02 B-Natriuretic Peptide 227.99 H Total Protein 7.3 Albumin 3.8 Lipase 135 Alcohol, Quantitative 160.9 H 05/11/18 18:20 RBC 4.52 MCV 85.0 MCHC 32.6 RDW 17.0 H MPV 7.9 Neutrophils % 70.5 Lymphocytes % 19.9 Monocytes % 7.8 Eosinophils % 1.5 Basophils % 0.3 - Medications Given in the ED: ED Medications Discontinued Medications Generic Name Dose Route Start Last Admin Trade Name Freq PRN Reason Stop Dose Admin Sodium Chloride 500 mls @ 500 mls/hr 05/11/18 18:24 05/11/18 18:52 Normal Saline - IV 05/11/18 19:23 500 mls/hr ASDIR STA Administration <Clemente Haskins - Last Filed: 05/11/18 23:44> Medical Decision Making - Medical Decision Making 05/11/18 18:48 Patient is 67M with history of CHF, mitral valve replacement (on eliquis), hemorrhagic stroke here today complaining of weakness. Vital signs notable for BP of 82/58 (MAP 66), HR of 93. DDx is broad and includes, but is not limited to : intoxication, dehydration, CHF exacerbation. Will workup with cardaic labs, alcohol level, ua, utox, ct head, cxr, ekg. EKG shows 1st degree AV block. Inverted P waves in II and III, ?ectopic pacemaker. No st elevations/depressions. Normal QRS/QTc intervals. Leftward axis. 05/11/18 19:[address] Whitlock. <Luis Jarrett - Last Filed: 05/11/18 19:04> *DC/Admit/Observation/Transfer <Luis Jarrett - Last Filed: 05/11/18 19:04> <Clemente Haskins - Last Filed: 05/11/18 23:44> Diagnosis at time of Disposition: Weakness, Hypotension - Discharge Dispostion Disposition: HOME Condition at time of disposition: Stable - Patient Instructions Printed Discharge Instructions: DI for Hypotension, DI for Dehydration -- Adult Additional Instructions: Your labs today showed that your kidney function is slightly impaired, though it improved after we gave you IV fluids. This may be a sign that you are dehydrated. Drink plenty of fluid to stay hydrated. Avoid excessive alcohol intake. Follow up with your primary care doctor within 1 week. You need repeat blood tests to make sure your kidneys are working normally. If you experience weakness, lightheadedness, chest pain, dizziness, shortness of breath, or any other concerning symptoms, return to the ER immediately.
[2018-05-11 18:56] LABS: BASO % 0.3 % (0-2.0); EOS % 1.5 % (0-4.5); HEMATOCRIT 38.4 % (35.4-49); HEMOGLOBIN 12.5 GM/dL (11.7-16.9); LYMPH % 19.9 % (8-40); MCH 27.7 pg (25.7-33.7); MCHC 32.6 g/dl (32.0-35.9); MEAN PLT VOLUME 7.9 fl (7.5-11.1); MONO % 7.8 % (3.8-10.2); NEUT % 70.5 % (42.8-82.8); PLATELET COUNT 212 K/MM3 (134-434); RBC 4.52 M/mm3 (4.00-5.60); WHITE BLOOD COUNT 5.5 K/mm3 (4.0-10.0)
[2018-05-11 19:11] LABS: PROTHROMBIN TIME (PATIENT) 11.3 SEC (9.7-13.0)
[2018-05-11 20:49] LABS: ALBUMIN 3.8 g/dl (3.4-5.0); ANION GAP 14 MMOL/L (8-16); BILIRUBIN,TOTAL 0.3 mg/dL (0.2-1.0); BLOOD UREA NITROGEN 22 mg/dL (7-18); CALCIUM 8.6 mg/dL (8.5-10.1); CHLORIDE 106 mmol/L (98-107); CO2 22 mmol/L (21-32); CREATININE 2.4 mg/dL (0.55-1.3); GLUCOSE,RANDOM 106 mg/dL (74-106); MAGNESIUM 2.1 mg/dL (1.8-2.4); POTASSIUM 3.7 mmol/L (3.5-5.1); SGOT/AST 16 U/L (15-37); SGPT/ALT 38 U/L (13-61); SODIUM 142 mmol/L (136-145); TOT PROT 7.3 g/dl (6.4-8.2)
[2018-05-11 20:53] LABS: ALK PHOS 126 U/L (45-117); N-TERMINAL BNP 227.99 pg/ml (5-125)
--- NOTE | 2018-05-11 21:05 | PDOC ---
Attending Attestation - Resident Resident Name: Luis Jarrett - ED Attending Attestation I have performed the following: I have examined & evaluated the patient, The case was reviewed & discussed with the resident, I agree w/resident's findings & plan, Exceptions are as noted - HPI HPI: 05/11/18 21:07 Patient is a 67 year old male with a significant past medical history of mitral valve replacement (on eliquis), CHF, hemorrhagic stroke, who presents to the ED with complaints of bilateral leg weakness that began today. Pt states that he was unable to walk up the stairs today. Pt admits to spending the day outside at a [employer] party today and had several drinks. Denies any other substance use. Pt denies any pain. Denies F/C. Denies arm weakness. Denies SALINAS. Denies chest pain, Sob. Denies nausea, vomiting. Denies contact with sick individuals, out of state travelling. Denies any other symptoms. Allergies: None Social history: Lives with . No smoking. Social drinker. No illicit drugs. Surgical history: None PMD: None " - Physicial Exam PE: 05/11/18 21:10 GENERAL: Awake, alert, and fully oriented, in no acute distress. HEAD: No signs of trauma EYES: PERRLA, EOMI, sclera anicteric, conjunctiva clear ENT: Auricles normal inspection, hearing grossly normal, nares patent, oropharynx clear without exudates. Moist mucosa NECK: Nontender, no stepoffs, Normal ROM, supple, no lymphadenopathy, JVD, or masses LUNGS: Breath sounds equal, clear to auscultation bilaterally. No wheezes, and no crackles HEART: Regular rate and rhythm, normal S1 and S2, no murmurs, rubs or gallops ABDOMEN: Soft, nontender, normoactive bowel sounds. No guarding, no rebound. No masses EXTREMITIES: Normal range of motion, no edema. No clubbing or cyanosis. No cords, erythema, or tenderness NEUROLOGICAL: Cranial nerves II through XII intact. 5/5 strength and sensation in all extremities, Normal speech, normal gait, normal cerebellar function SKIN: Warm, Dry, normal turgor, no rashes or lesions noted. - Medical Decision Making 05/11/18 21:10 67 M presenting with generalized weakness, found to be hypotensive in ED. Will perform septic work up. Will r/o cardiac etiology as well with EKG and trop. Pt with h/o ICH but no focal neuro deficits on exam, equal strength bilaterally. - Labs, cultures - CXR, UA - IVF 05/11/18 22:04 Initial labs notable for lactate 2.9, with Cr 2.2 (unknown baseline) Pt given 500cc fluid given h/o CHF. Reassessed - now feels significantly better. Suspect pt's weakness was likely 2/ 2 ETOH intoxication. Pt now ambulatory in ED without issue. 05/11/18 23:39 Repeat lactate normal, Cr improving with fluids. Pt is well appearing, with normal vitals. Clinically stable for DC at this time. I discussed the physical exam findings, ancillary test results and final diagnoses with the patient. I answered all of the patient's questions. The patient was satisfied with the care received and felt comfortable with the discharge plan and treatment plan. The patient agrees to follow up with the primary care physician within 24-72 hours.
[2018-05-11] MEDS ORDERED: FOLIC ACID INJECTION - 1 MG, THIAMINE HCL 100 MG, MULTIVIT INJECTION ADULT 10 ML in SOD... IVPB ONE (22:33)
[2018-05-11 22:38] LABS: ALBUMIN 3.8 g/dl (3.4-5.0); ANION GAP 8 MMOL/L (8-16); BILIRUBIN,TOTAL 0.3 mg/dL (0.2-1.0); BLOOD UREA NITROGEN 21 mg/dL (7-18); CALCIUM 8.5 mg/dL (8.5-10.1); CHLORIDE 108 mmol/L (98-107); CO2 26 mmol/L (21-32); CREATININE 2.1 mg/dL (0.55-1.3); GLUCOSE,RANDOM 98 mg/dL (74-106); POTASSIUM 4.6 mmol/L (3.5-5.1); SGOT/AST 17 U/L (15-37); SGPT/ALT 36 U/L (13-61); SODIUM 142 mmol/L (136-145); TOT PROT 7.4 g/dl (6.4-8.2)
[2018-05-11 22:39] LABS: ALK PHOS 132 U/L (45-117)
[2018-05-11 23:03] VITALS: BP 107/77
[2018-05-12 00:18] VITALS: PULSE 96
--- NOTE | 2018-05-12 00:27 | PDOC ---
*Physical Exam - Vital Signs Last Vital Signs Temp Pulse Resp BP Pulse Ox 98.2 F 96 H 16 107/77 93 L 05/11/18 18:12 05/11/18 20:11 05/11/18 20:11 05/11/18 23:03 05/11/18 20:11 - Physical Exam Comments: 05/12/18 00:31 GENERAL: Well developed, well nourished. Awake and alert. No acute distress. HEENT: Normocephalic, atraumatic. PERRLA, EOMI. No conjunctival pallor. Sclera are non- icteric. Moist mucous membranes. Oropharynx is clear. NECK: Supple. Full ROM. No JVD. No thyromegaly. No lymphadenopathy. CARDIOVASCULAR: Regular rate and rhythm. No murmurs, rubs, or gallops. Distal pulses are 2+ and symmetric. PULMONARY: No evidence of respiratory distress. Lungs clear to auscultation bilaterally. No wheezing, rales or rhonchi. ABDOMINAL: Abdomen is distended. Soft. Non-tender. No rebound or guarding. No organomegaly. Normoactive bowel sounds. MUSCULOSKELETAL Normal range of motion at all joints. No bony deformities or tenderness. No CVA tenderness. EXTREMITIES: No cyanosis. No clubbing. Trace edema. No calf tenderness. SKIN: Warm and dry. Normal capillary refill. No rashes. No jaundice. NEUROLOGICAL: Alert, awake, appropriate. Cranial nerves 2-12 intact. No deficits to light touch in face, upper extremities and lower extremities. No motor deficits in the in face, upper extremities and lower extremities. Normal speech. Toes are down-going bilaterally. Gait is normal without ataxia. PSYCHIATRIC: Cooperative. Good eye contact. Appropriate mood and affect. 05/12/18 00:34 ED Treatment Course - LABORATORY CBC & Chemistry Diagram: 05/11/18 18:20 05/11/18 22:10 - ADDITIONAL ORDERS Additional order review: Laboratory Results 05/11/18 05/11/18 05/11/18 22:10 22:10 18:28 PT with INR INR Sodium 142 Potassium 4.6 Chloride 108 H Carbon Dioxide 26 Anion Gap 8 BUN 21 H Creatinine 2.1 H Creat Clearance w eGFR 31.66 Random Glucose 98 Lactic Acid 1.5 2.9 H* Calcium 8.5 Magnesium Total Bilirubin 0.3 AST 17 ALT 36 Alkaline Phosphatase 132 H Creatine Kinase Troponin I B-Natriuretic Peptide Total Protein 7.4 Albumin 3.8 Lipase Alcohol, Quantitative 05/11/18 05/11/18 05/11/18 18:20 18:20 18:20 PT with INR 11.30 INR 1.00 Sodium 142 Potassium 3.7 Chloride 106 Carbon Dioxide 22 Anion Gap 14 BUN 22 H Creatinine 2.4 H Creat Clearance w eGFR 27.14 Random Glucose 106 Lactic Acid Calcium 8.6 Magnesium 2.1 Total Bilirubin 0.3 AST 16 ALT 38 Alkaline Phosphatase 126 H Creatine Kinase 98 Troponin I < 0.02 B-Natriuretic Peptide 227.99 H Total Protein 7.3 Albumin 3.8 Lipase 135 Alcohol, Quantitative 160.9 H 05/11/18 18:20 RBC 4.52 MCV 85.0 MCHC 32.6 RDW 17.0 H MPV 7.9 Neutrophils % 70.5 Lymphocytes % 19.9 Monocytes % 7.8 Eosinophils % 1.5 Basophils % 0.3 - Medications Given in the ED: ED Medications Discontinued Medications Generic Name Dose Route Start Last Admin Trade Name Jesus PRN Reason Stop Dose Admin Sodium Chloride 500 mls @ 500 mls/hr 05/11/18 18:24 05/11/18 18:52 Normal Saline - IV 05/11/18 19:23 500 mls/hr ASDIR STA Administration Folic Acid 1 mg/ Thiamine HCl 1,000 mls @ 125 mls/hr 05/11/18 22:33 05/11/18 23:02 100 mg/ Multivitamins/Minerals IVPB 05/12/18 06:32 125 mls/hr 10 ml/ Sodium Chloride ONCE ONE Administration Medical Decision Making - Medical Decision Making 05/12/18 00:25 67M with history of mitral valve replacement (on eliquis), CHF, hemorrhagic stroke Patient came in to the ER with b/l leg weakness, hypotension and intoxicated on alcohol. When I examined the patient he no longer had weakness, his BP was WNL. Head CT showed no acute pathology. He kept saying what happened to him was because he drank alcohol. He wanted to leave the ER bc he felt better and didn't think anything was wrong with him. Administered a banana bag. Patient was DCed with pcp LULU. 05/12/18 00:35 05/12/18 00:35 05/12/18 00:36 *DC/Admit/Observation/Transfer Diagnosis at time of Disposition: Weakness, Hypotension - Discharge Dispostion Disposition: HOME Condition at time of disposition: Stable - Referrals - Patient Instructions Printed Discharge Instructions: DI for Dehydration -- Adult, DI for Hypotension Additional Instructions: Your labs today showed that your kidney function is slightly impaired, though it improved after we gave you IV fluids. This may be a sign that you are dehydrated. Drink plenty of fluid to stay hydrated. Avoid excessive alcohol intake. Follow up with your primary care doctor within 1 week. You need repeat blood tests to make sure your kidneys are working normally. If you experience weakness, lightheadedness, chest pain, dizziness, shortness of breath, or any other concerning symptoms, return to the ER immediately. - Post Discharge Activity
--- NOTE | 2018-05-12 21:28 | EKG ---
Test Reason : Blood Pressure : / mmHG Vent. Rate : 094 BPM Atrial Rate : 094 BPM P-R Int : 212 ms QRS Dur : 088 ms QT Int : 364 ms P-R-T Axes : 000 -54 034 degrees QTc Int : 455 ms SINUS RHYTHM WITH 1ST DEGREE A-V BLOCK WITH OCCASIONAL PREMATURE VENTRICULAR COMPLEXES LEFT AXIS DEVIATION INFERIOR-POSTERIOR INFARCT (CITED ON OR BEFORE 22-AUG-2007) ANTEROLATERAL INFARCT (CITED ON OR BEFORE 22-AUG-2007) ABNORMAL ECG WHEN COMPARED WITH ECG OF 30-APR-2017 10:24, PREMATURE VENTRICULAR COMPLEXES ARE NOW PRESENT Confirmed by SANTIAGO JUNE MD ([id number]) on 05/12/2018 9:28:21 PM Referred By: Confirmed By:SANTIAGO JUNE MD
== END 2018-05-12 00:18 | disposition home or self-care (01) ==
LOC: JER 18:07
PROC: 3E033GC Introduction of Other Therapeutic Substance into Peripheral Vein, Percutaneous Approach (ICD-10-PCS; principal; 2018-05-11)
PROC: 3E0337Z Introduction of Electrolytic and Water Balance Substance into Peripheral Vein, Percutaneous Approach (ICD-10-PCS; 2018-05-11)
DX: M62.81 Muscle weakness (generalized) (principal); I95.9 Hypotension, unspecified; F10.120 Alcohol abuse with intoxication, uncomplicated; Y90.6 Blood alcohol level of 120-199 mg/100 ml; Z95.2 Presence of prosthetic heart valve; Z79.01 Long term (current) use of anticoagulants; I50.22 Chronic systolic (congestive) heart failure; Z86.73 Personal history of transient ischemic attack (TIA), and cerebral infarction without residual deficits; R26.89 Other abnormalities of gait and mobility; E11.9 Type 2 diabetes mellitus without complications; F17.210 Nicotine dependence, cigarettes, uncomplicated
CPT/HCPCS: 36415; 70450-TC; 71045-TC-FY; 80053; 80307; 82550; 83605; 83690; 83735; 83880; 84484; 85025; 85610; 87040; 93005; 93010; 96361; 96365; 96366; 99285-25; J7030

== ENCOUNTER 2019-04-03 09:51 | Inpatient (IN) | payer OTHER, BC ==
[2019-04-03 09:59] VITALS: BMI 29.2
[2019-04-03 10:59] LABS: BASO % 0.4 % (0-2.0); EOS % 2.4 % (0-4.5); HEMATOCRIT 41.2 % (35.4-49); HEMOGLOBIN 13.4 GM/dL (11.7-16.9); LYMPH % 19.6 % (8-40); MCH 27.3 pg (25.7-33.7); MCHC 32.6 g/dl (32.0-35.9); MEAN CELL VOLUME 83.5 fl (80-96); MEAN PLT VOLUME 8.1 fl (7.5-11.1); MONO % 15.5 % (3.8-10.2); NEUT % 62.1 % (42.8-82.8); PLATELET COUNT 221 K/MM3 (134-434); RBC 4.93 M/mm3 (4.00-5.60); RDW 16.7 % (11.9-15.9); WHITE BLOOD COUNT 5.5 K/mm3 (4.0-10.0)
[2019-04-03 11:32] LABS: ALBUMIN 3.6 g/dl (3.4-5.0); BILIRUBIN,TOTAL 0.7 mg/dL (0.2-1); BLOOD UREA NITROGEN 15.9 mg/dL (7-18); CALCIUM 9.4 mg/dL (8.5-10.1); CREATININE 1.6 mg/dL (0.55-1.3); MAGNESIUM 2.3 mg/dL (1.8-2.4); N-TERMINAL BNP 143.8 pg/ml (5-125); POTASSIUM 4.4 mmol/L (3.5-5.1); TOT PROT 7.4 g/dl (6.4-8.2)
[2019-04-03] MEDS ORDERED: ACETAMINOPHEN INJECTION 100 ML IVPB ONE (11:34)
[2019-04-03] MEDS ORDERED: ACETAMINOPHEN 1000 MG/100 ML VIAL (NON FORMULARY) IVPB ONE (11:34)
[2019-04-03 11:35] LABS: INR 1.03 (0.83-1.09); PROTHROMBIN TIME (PATIENT) 12.1 SEC (9.7-13.0)
--- NOTE | 2019-04-03 11:39 | PDOC ---
Documentation entered by Katie Navarro SCRIBE, acting as scribe for Papi Ayala MD. Papi Ayala MD: This documentation has been prepared by the Ramon garcia Collisia, SCRIBE, under my direction and personally reviewed by me in its entirety. I confirm that the documentation accurately reflects all work, treatment, procedures, and medical decision making performed by me. History of Present Illness - General Chief Complaint: Chest Pain Stated Complaint: CHEST PAIN Time Seen by Provider: 04/03/19 10:09 History Source: Patient Exam Limitations: No Limitations - History of Present Illness Initial Comments: 04/03/19 10:49 The patient is a 68 year old male with a significant past medical history of CHF on entresto, torsemide, mitral valve replacement (2012, ), hyperlipidemia, on keppra BID unsure why, who presents to the ED with right sided chest pain since last night. The chest pain began while he was in bed resting. It is constant non-radiating and has not improved with anything. Worsened when he takes a deep breath. No associated with focal weakness/numbness /dizziness, nausea, vomiting, no shortness of breath. He reports chronic lower extremity edema with no increase in pain or edema recently. Recent travel to [place] 3 weeks ago. No history of similar symptoms. He has been compliant with his medications. Patients help desk intern is Dr. Manjarrez. Ginny F/C, abd pain. Past History - Past Medical History Allergies/Adverse Reactions: Allergies Allergy/AdvReac Type Severity Reaction Status Date / Time No Known Allergies Allergy Verified 04/03/19 09:53 Home Medications: Ambulatory Orders Sacubitril/Valsartan [Entresto 49 mg-51 mg Tablet] 1 tab PO BID 05/11/18 Torsemide 100 mg PO BID 05/11/18 Cardiac Disorders: Yes (MVP-VALVE REPLACED, CABG) CVA: Yes COPD: No Diabetes: Yes HTN: Yes - Surgical History Cardiac Surgery: Yes (MVP-VALVE REPLACED) - Immunization History Immunization Up to Date: No - Suicide/Smoking/Psychosocial Hx Smoking History: Never smoked Have you smoked in the past 12 months: No Number of Cigarettes Smoked Daily: 10 'Breaking Loose' booklet given: 04/30/17 Hx Alcohol Use: No Drug/Substance Use Hx: No Review of Systems - Review of Systems Able to Perform ROS?: Yes Comments:: 04/03/19 10:49 GENERAL/CONSTITUTIONAL: No fever or chills. No weakness. HEAD, EYES, EARS, NOSE AND THROAT: No change in vision. No ear pain or discharge. No sore throat. GASTROINTESTINAL: No nausea, vomiting, diarrhea or constipation. GENITOURINARY: No dysuria, frequency, or change in urination. CARDIOVASCULAR: No chest pain or shortness of breath. RESPIRATORY: No cough, wheezing, or hemoptysis. MUSCULOSKELETAL: No joint or muscle swelling or pain. No neck or back pain. SKIN: No rash NEUROLOGIC: No headache, vertigo, loss of consciousness, or change in strength/ sensation. ENDOCRINE: No increased thirst. No abnormal weight change. HEMATOLOGIC/LYMPHATIC: No anemia, easy bleeding, or history of blood clots. ALLERGIC/IMMUNOLOGIC: No hives or skin allergy. *Physical Exam - Vital Signs Last Vital Signs Temp Pulse Resp BP Pulse Ox 98.1 F 83 18 101/64 98 04/03/19 09:53 04/03/19 09:53 04/03/19 09:53 04/03/19 09:53 04/03/19 10:20 - Physical Exam Comments: 04/03/19 10:51 GENERAL: Awake, alert, and fully oriented, in no acute distress HEAD: No signs of trauma EYES: PERRLA, EOMI, sclera anicteric, conjunctiva clear ENT: Nares patent, oropharynx clear without exudates. Moist mucosa NECK: Normal ROM, supple, no lymphadenopathy, JVD, or masses LUNGS: Breath sounds equal, clear to auscultation bilaterally. No wheezes, and no crackles HEART: Regular rate and rhythm, normal S1 and S2, no murmurs, rubs or gallops. No reproducible CP ABDOMEN: Soft, nontender, normoactive bowel sounds. No guarding, no rebound. No masses EXTREMITIES: Normal range of motion, no edema. No clubbing or cyanosis. No cords, erythema, or tenderness NEUROLOGICAL: Normal speech, cranial nerves intact, equal strength and sensation b/l Heart Score/ECG Review - History History: Moderately suspicious - Electrocardiogram EKG: Non specific repolarization disturbance - Age Age: >/= 65 - Risk Factors Risk Factors Heart Score: Yes Hx Hypercholesterolemia, Yes Hx Hypertension, Yes Hx Obesity Based on the list above the patient has:: >/=3 risk factors or Hx atherosclerotic disease - Troponin Troponin: 1-3x normal limit - Score Heart Score - Total: 7 #1 04/03/19 11:38 Twelve-lead EKG was performed and reviewed by me. Normal sinus rhythm, rate 81. Left axis deviation. No ST elevations. T wave flattening in 1, aVL and V6. When compared to previous EKG, no significant changes. ED Treatment Course - LABORATORY CBC & Chemistry Diagram: 04/03/19 10:30 04/03/19 10:30 - RADIOLOGY Radiology Studies Ordered: Category Date Time Status CHEST X-RAY PORTABLE* [RAD] Stat Radiology 04/03/19 10:18 Ordered Medical Decision Making - Medical Decision Making 04/03/19 11:38 68yo M hx HL, MVR, CHF presents to the ED with R sided pleuritic CP DDx includes PE vs ACS vs PNA vs pneumonia Plan for cardiac catheterization technologist, labs, XR, possible CTA. Anticipate admission for elevated heart score Dimer+, trop 0.09, BNP very mildly elevated, CTA obtained Remains HDS CTA with R sided PE Stool occult pending Heparin ordered Plan for admission to telemetry 04/03/19 14:[address] Perez, agrees with plan so far Awaiting call back from Dr. Rousseau for admission 04/03/19 14:[address] Rousseau Requests consult fro Dr. Prabhakar which has been placed Pt accepted for admission Case discussed in detail with admitting physician including history, physical exam and ancillary studies. Admitting physician has assumed care for the patient, will follow all pending diagnostics and will complete the evaluation and treatment. *DC/Admit/Observation/Transfer Diagnosis at time of Disposition: Pulmonary embolism and infarction, Pneumonia, Chest pain - Discharge Dispostion Condition at time of disposition: Stable - Referrals Referrals: Riaz Manley MD [Primary Care Provider] - - Patient Instructions - Post Discharge Activity - Attestations Physician Attestion: 04/03/19 15:11 I, Dr. Papi Ayala MD, attest that this document has been prepared under my direction and personally reviewed by me in its entirety. I further attest, that it accurately reflects all work, treatment, procedures and medical decision -making performed by me.
--- NOTE | 2019-04-03 13:48 | EKG ---
Test Reason : Blood Pressure : / mmHG Vent. Rate : 081 BPM Atrial Rate : 081 BPM P-R Int : 208 ms QRS Dur : 090 ms QT Int : 384 ms P-R-T Axes : 065 -58 060 degrees QTc Int : 446 ms NORMAL SINUS RHYTHM POSSIBLE LEFT ATRIAL ENLARGEMENT LEFT AXIS DEVIATION LOW VOLTAGE QRS POSSIBLE LATERAL INFARCT (CITED ON OR BEFORE 22-AUG-2007) INFERIOR-POSTERIOR INFARCT (CITED ON OR BEFORE 22-AUG-2007) ABNORMAL ECG WHEN COMPARED WITH ECG OF 11-MAY-2018 18:06, PREMATURE VENTRICULAR COMPLEXES ARE NO LONGER PRESENT QUESTIONABLE CHANGE IN INITIAL FORCES OF ANTERIOR LEADS Confirmed by YONI QUINTERO MD ([id number]) on 04/03/2019 1:48:10 PM Referred By: Confirmed By:YONI QUINTERO MD
[2019-04-03] MEDS ORDERED: HEPARIN NA (PORCINE) 5,000 UNITS/ML 1ML VIAL IVPUSH PRN ×2 (13:57)
[2019-04-03] MEDS ORDERED: AZITHROMYCIN IVPB 500 MG in DEXTROSE 5%-WATER - 250 ML IVPB ONE (14:21)
[2019-04-03] MEDS ORDERED: CEFTRIAXONE 1,000 MG in DEXTROSE 5%-WATER - 50 ML IVPB ONE (14:21)
[2019-04-03] MEDS ORDERED: HEPARIN INFUSION - 25,000 UNITS/500 ML INFUS.BAG IVPB ONE (14:25)
[2019-04-03] MEDS: HEPARIN INFUSION - 25,000 UNITS/500 ML INFUS.BAG IVPB SCH (14:45)
[2019-04-03] MEDS ORDERED: CEFTRIAXONE 1 GM/50 ML BAG ONE (15:20)
[2019-04-03] MEDS ORDERED: AZITHROMYCIN IVPB 500 MG/250 ML BAG IVPB ONE (15:20)
--- NOTE | 2019-04-03 16:37 | CON.CARD ---
Consult Consult Specialty:: Cardiology Referred by:: Medicine Reason for Consultation:: PE, elevated trop - History of Present Illness Chief Complaint: chest pain History of Present Illness: 68M h/o chronic systolic HF, s/p MVR, HLD p/w R sided chest pain for one day. Was at rest when it started, worse with deep breaths but constant. No dyspnea, palps, orthopnea. Has had stable leonardo lower ext edema for several years. Recently traveled to [place] [address] Manjarrez for cardio. 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 Cardio/Vascular: Yes: HTN, Other (mechanical mitral valve) Gastrointestinal: Yes: GERD Renal/: Yes: Renal Inusuff - Alcohol/Substance Use Hx Alcohol Use: No - Smoking History Smoking history: Never smoked Have you smoked in the past 12 months: No Aproximately how many cigarettes per day: 10 Home Medications - Allergies Allergies/Adverse Reactions: Allergies Allergy/AdvReac Type Severity Reaction Status Date / Time No Known Allergies Allergy Verified 04/03/19 09:53 - Home Medications Home Medications: Ambulatory Orders Sacubitril/Valsartan [Entresto 49 mg-51 mg Tablet] 1 tab PO BID 05/11/18 Torsemide 100 mg PO BID 05/11/18 Family Disease History - Family Disease History Family History: Unremarkable Review of Systems - Review of Systems Constitutional: reports: No Symptoms Eyes: reports: No Symptoms HENT: reports: No Symptoms Neck: reports: No Symptoms Cardiovascular: reports: No Symptoms Respiratory: reports: No Symptoms Gastrointestinal: reports: No Symptoms Genitourinary: reports: No Symptoms Musculoskeletal: reports: No Symptoms Integumentary: reports: No Symptoms Neurological: reports: No Symptoms Endocrine: reports: No Symptoms Hematology/Lymphatic: reports: No Symptoms Psychiatric: reports: No Symptoms Vital Signs: Vital Signs Temperature 97.9 F 04/03/19 15:45 Pulse Rate 69 04/03/19 15:45 Respiratory Rate 18 04/03/19 15:45 Blood Pressure 102/67 04/03/19 15:45 O2 Sat by Pulse Oximetry (%) 96 04/03/19 15:45 Constitutional: Yes: Well Nourished, No Distress, Calm Eyes: Yes: Conjunctiva Clear, EOM Intact HENT: Yes: Atraumatic, Normocephalic Neck: Yes: Supple, Trachea Midline Respiratory: Yes: Regular, CTA Bilaterally Gastrointestinal: Yes: Normal Bowel Sounds, Soft Cardiovascular: Yes: Regular Rate and Rhythm JVD: No Carotid Bruit: No PMI: Non-Displaced Heart Sounds: Yes: S1, S2 Musculoskeletal: No: Back Pain Extremities: No: Cold Edema: Yes Edema: LLE: 1+, RLE: 1+ Peripheral Pulses WNL: Yes Integumentary: No: Jaundice Neurological: Yes: Alert, Oriented Psychiatric: No: Agitated - Other Data Labs, Other Data: CBC, BMP 04/03/19 10:30 04/03/19 10:30 INR, PTT INR 1.03 (0.83-1.09) 04/03/19 10:30 Troponin, BNP 04/03/19 04/03/19 10:30 10:30 Troponin I 0.09 H B-Natriuretic Peptide 143.8 H Troponin, BNP 04/03/19 04/03/19 10:30 10:30 Troponin I 0.09 H B-Natriuretic Peptide 143.8 H Assessment/Plan CTA chest: PE within RML branches, consolidation RML c/w PNA, consolidation in R lung base with trace R pleural effusion CXR: no congestion EKG: sinus, old inf infarct, no ischemic changes 68M h/o chronic systolic HF, s/p MVR, HLD p/w R sided chest pain with PE PE, chest pain - on heparin gtt for AC, pulm consulted as well - elevated trop and BNP likely in setting of PE - also consolidation noted on CTA chest - received dose of IV abx - check echocardiogram to evaluate R heart - monitor on tele chronic systolic HF - appears euvolemic, no congestion on CXR - per patient has stable edema - cont home meds incl torsemide, entresto s/p bio MVR - history of [facility] MVR that was changed in 2017 to bio MVR given history of prior ICH - ?on aspirin, need to clarify home meds - echo pending as above CAD - elevated trop likely in setting of PE - cont home meds - will clarify as above CKD - stable, monitor Cr
[2019-04-03] MEDS ORDERED: ACETAMINOPHEN 325 MG TABLET (FP) PO PRN (17:49)
--- NOTE | 2019-04-03 17:56 | HP ---
Admitting History and Physical - Primary Care Physician PCP: Riaz Manley - Admission History of Present Illness: pt seen / examined in er chart reviewed. In summary The patient is a 68 year old male with a significant past medical history of CHF on entresto, torsemide, mitral valve replacement (2012, bovine), hyperlipidemia,cva on keppra BID , who presents to the ED with right sided chest pain since last night. The chest pain began while he was in bed resting. It is constant non-radiating and has not improved with anything. Worsened when he takes a deep breath. No associated with focal weakness/numbness/dizziness, nausea, vomiting, no shortness of breath. He reports chronic lower extremity edema with no increase in pain or edema recently. 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 Cardiovascular: Yes: HTN, Other (mechanical mitral valve) Gastrointestinal: Yes: GERD Renal/: Yes: Renal Inusuff - Smoking History Smoking history: Never smoked Have you smoked in the past 12 months: No Aproximately how many cigarettes per day: 10 - Alcohol/Substance Use Hx Alcohol Use: No Home Medications - Allergies Allergies/Adverse Reactions: Allergies Allergy/AdvReac Type Severity Reaction Status Date / Time No Known Allergies Allergy Verified 04/03/19 09:53 - Home Medications Home Medications: Ambulatory Orders Sacubitril/Valsartan [Entresto 49 mg-51 mg Tablet] 1 tab PO BID 05/11/18 Torsemide 100 mg PO BID 05/11/18 Review of Systems - Review of Systems Constitutional: reports: No Symptoms Eyes: reports: No Symptoms HENT: reports: No Symptoms Neck: reports: No Symptoms Cardiovascular: reports: Chest Pain Respiratory: reports: SOB Gastrointestinal: reports: No Symptoms Genitourinary: reports: No Symptoms Musculoskeletal: reports: No Symptoms Psychiatric: reports: No Symptoms Physical Examination Vital Signs: Vital Signs Temperature 97.9 F 04/03/19 15:45 Pulse Rate 69 04/03/19 15:45 Respiratory Rate 18 04/03/19 15:45 Blood Pressure 102/67 04/03/19 15:45 O2 Sat by Pulse Oximetry (%) 96 04/03/19 15:45 Constitutional: Yes: No Distress, Calm, Obese Eyes: Yes: WNL, Conjunctiva Clear, PERRL HENT: Yes: WNL Neck: Yes: Supple Cardiovascular: Yes: Regular Rate and Rhythm Respiratory: Yes: CTA Bilaterally Gastrointestinal: Yes: Soft Edema: No Neurological: Yes: WNL, Alert Labs: CBC, BMP 04/03/19 10:30 04/03/19 10:30 Imaging - Results Chest X-ray: Report Reviewed Cat Scan: Report Reviewed EKG: Report Reviewed Problem List - Problems (1) Chest pain Code(s): R07.9 - CHEST PAIN, UNSPECIFIED (2) Pneumonia Code(s): J18.9 - PNEUMONIA, UNSPECIFIED ORGANISM (3) Pulmonary embolism and infarction Code(s): I26.99 - OTHER PULMONARY EMBOLISM WITHOUT ACUTE COR PULMONALE (4) Elevated troponin Code(s): R79.89 - OTHER SPECIFIED ABNORMAL FINDINGS OF BLOOD CHEMISTRY (5) Renal insufficiency Code(s): N28.9 - DISORDER OF KIDNEY AND URETER, UNSPECIFIED Assessment/Plan Discussed Heparin drip abx cardiology / pulmonary consults monitor labs PE Recent travel check u/s -- r/o dvt will follow will discuss with pts pmd also
[2019-04-03] MEDS: TORSEMIDE 100 MG TABLET PO SCH (22:40)
[2019-04-03] MEDS: SACUBITRIL/VALSARTAN 49 MG-51 MG TABLET PO SCH (22:40)
[2019-04-03] MEDS: levETIRAcetam 500 MG TABLET (FP) PO SCH (22:41)
[2019-04-04 07:21] LABS: ALBUMIN 3.7 g/dl (3.4-5.0); BLOOD UREA NITROGEN 14.2 mg/dL (7-18); CALCIUM 8.8 mg/dL (8.5-10.1); CREATININE 1.5 mg/dL (0.55-1.3); POTASSIUM 3.8 mmol/L (3.5-5.1); TOT PROT 7.9 g/dl (6.4-8.2)
--- NOTE | 2019-04-04 08:54 | PN ---
Progress Note, Physician Chief Complaint: Eating breakfast C/o pleuritic CP TLE: NSR, PVCs - Current Medication List Current Medications: Active Medications Acetaminophen (Tylenol -) 650 mg PO Q6H PRN PRN Reason: PAIN LEVEL 1-5 Heparin Sodium (Porcine) (Heparin -) 1,000 unit IVPUSH PRN PRN PRN Reason: Heparin Heparin Sodium (Porcine) (Heparin -) 5,000 unit IVPUSH PRN PRN PRN Reason: Heparin Last Admin: 04/03/19 22:50 Dose: 5,000 unit Heparin Sodium/Dextrose (Heparin Infusion -) 25,000 units in 500 mls @ 20 mls/ hr IVPB TITR [facility]; Protocol Last Titration: 04/03/19 22:40 Dose: 1,150 units/hr, 23 mls/hr Azithromycin (Zithromax 500mg Ivpb (Pre-Docked)) 500 mg in 250 mls @ 250 mls/ hr IVPB DAILY [facility] Ceftriaxone Sodium 1 gm/ (Dextrose) 50 mls @ 100 mls/hr IVPB DAILY [facility]; Protocol Levetiracetam (Keppra -) 500 mg PO BID [facility] Last Admin: 04/03/19 22:41 Dose: 500 mg Sacubitril/Valsartan (Entresto 49 Mg-51 Mg Tablet) 1 tab PO BID [facility] Last Admin: 04/03/19 22:40 Dose: 1 tab Torsemide (Demadex -) 100 mg PO BID [facility] Last Admin: 04/03/19 22:40 Dose: 100 mg - Objective Vital Signs: Vital Signs Temperature 98.7 F 04/04/19 08:00 Pulse Rate 76 04/04/19 08:00 Respiratory Rate 18 04/04/19 08:00 Blood Pressure 100/66 04/04/19 08:00 O2 Sat by Pulse Oximetry (%) 100 04/04/19 08:00 Constitutional: Yes: No Distress Cardiovascular: Yes: Regular Rate and Rhythm Respiratory: Yes: Other (poor inspiratory effort, no active wheezing.) Gastrointestinal: Yes: Soft Edema: No Neurological: Yes: Alert, Oriented ...Motor Strength: WNL Labs: CBC, BMP 04/03/19 10:30 04/04/19 05:30 INR, PTT INR 1.03 (0.83-1.09) 04/03/19 10:30 - ....Imaging EKG: Image Reviewed Assessment/Plan Assessment/Plan CTA chest: PE within RML branches, consolidation RML c/w PNA, consolidation in R lung base with trace R pleural effusion CXR: no congestion EKG: sinus, old inf infarct, no ischemic changes 68M h/o chronic systolic HF, s/p MVR, HLD p/w R sided chest pain with PE: PE, chest pain: - on heparin gtt for AC, pulm consulted as well - elevated trop and BNP likely in setting of PE - also consolidation noted on CTA chest - received dose of IV abx - check echocardiogram to evaluate R heart, done this AM - monitor on tele Chronic systolic HF - appears euvolemic, no congestion on CXR - per patient has stable edema - cont home meds incl torsemide, entresto s/p bio MVR - [facility] bio MVR given history of prior ICH - ?on aspirin, need to clarify home meds - echo pending as above CAD - elevated trop likely in setting of PE - cont home meds - will clarify as above CKD - stable, monitor Cr
--- NOTE | 2019-04-04 10:04 | ECHO ---
Name: THIEN CULLEN Exam:Adult Echocardiogram Study Date: 04/04/2019 07:20 AM Age: 68 yrs Reason For Study: PE, Elevated Trop Height: 73 in Weight: 222 lb BSA: 2.2 m2 MMode/2D Measurements & Calculations IVSd: 1.3 cm ACS: 1.8 cm LVIDd: 5.1 cm LVIDs: 4.5 cm LVPWd: 1.4 cm EDV(Teich): 123.6 ml LVOT diam: 1.9 cm ESV(Teich): 92.6 ml Doppler Measurements & Calculations MV E max marina: 120.0 cm/sec MV A max marina: 125.4 cm/sec MV dec slope: 221.2 cm/sec2 MV E/A: 0.96 Ao V2 max: 91.7 cm/sec TR max marina: 219.9 cm/sec Ao max P.4 mmHg TR max P.3 mmHg Ao V2 mean: 65.4 cm/sec Ao mean P.9 mmHg Ao V2 VTI: 22.6 cm Procedure The study was technically difficult with many images being suboptimal in quality. Left Ventricle There is mild concentric left ventricular hypertrophy. Left ventricular systolic function is mildly r educed. Ejection Fraction = 45-50%. Regional wall motion abnormalities cannot be excluded due to limited visualization. Septal motion is consistent with post-operative state. Right Ventricle The right ventricle is not well visualized. The right ventricle is grossly normal size. The right rachana tricular systolic function is grossly normal. Atria The left atrium is mildly dilated. Right atrium not well visualized. Mitral Valve There is a bioprosthetic mitral valve. There is no mitral valve stenosis. There is trace mitral regur gitation. Tricuspid Valve The tricuspid valve is normal in structure and function. There is mild tricuspid regurgitation. There was insufficient TR detected to calculate RV systolic pressure. Aortic Valve There is mild aortic sclerosis.;. No hemodynamically significant valvular aortic stenosis. No aortic regurgitation is present. Pulmonic Valve The pulmonic valve is not well seen, but is grossly normal. There is no pulmonic valvular stenosis. T race to mild pulmonic valvular regurgitation. Great Vessels Borderline aortic root dilatation. Pericardium/Pleura Prominent epicardial fat pad. Interpretation Summary The study was technically difficult with many images being suboptimal in quality. Regional wall motion abnormalities cannot be excluded due to limited visualization. Left ventricular systolic function is mildly reduced. Ejection Fraction = 45-50%. Septal motion is consistent with post-operative state. The right ventricle is not well visualized. The right ventricle is grossly normal size. The right ventricular systolic function is grossly normal. The left atrium is mildly dilated. There is a bioprosthetic mitral valve. There is trace mitral regurgitation. There is mild tricuspid regurgitation. There was insufficient TR detected to calculate RV systolic pressure. There is mild aortic sclerosis.; MD Barton *Toni 04/04/2019 10:03 AM
[2019-04-04] MEDS: levETIRAcetam 500 MG TABLET (FP) PO SCH ×2 (10:39→21:15)
[2019-04-04] MEDS: HEPARIN INFUSION - 25,000 UNITS/500 ML INFUS.BAG IVPB SCH ×3 (10:39→20:22)
[2019-04-04] MEDS ORDERED: DEXTROSE 5%-WATER - 50 ML IVPB ONE (10:42)
[2019-04-04] MEDS ORDERED: PT OWN MED DRAWER 7, Y5N ONE (10:42)
[2019-04-04] MEDS ORDERED: cefTRIAXone SODIUM 1 GM VIAL ONE (10:42)
[2019-04-04] MEDS: SACUBITRIL/VALSARTAN 49 MG-51 MG TABLET PO SCH ×2 (10:59→21:16)
[2019-04-04] MEDS: TORSEMIDE 100 MG TABLET PO SCH (10:59)
[2019-04-04] MEDS: CEFTRIAXONE 1 GM in DEXTROSE 5%-WATER - 50 ML IVPB SCH (11:00)
--- NOTE | 2019-04-04 11:16 | PN ---
Progress Note (short form) - Note Progress Note: pt seen/ examined comfortable c/c-- passing lot of urine-- Vital Signs Temp 98.7 F 04/04/19 08:00 Pulse 76 04/04/19 08:00 Resp 18 04/04/19 08:00 BP 100/66 04/04/19 08:00 Pulse Ox 100 04/04/19 08:00 Intake & Output 04/03/19 04/03/19 04/04/19 11:59 23:59 11:59 Intake Total 300 440 Output Total 2000 Balance 300 -1560 Weight 222 lb 222 lb Intake: IV 240 HEPARIN INFUSION - 25,000 240 units In 500 ml @ 1,000 UNITS/HR 20 mls/hr IVPB TITR [facility] Rx#:[id number] Oral 300 200 Output: Urine 2000 Void 2000 Other: Voiding Method Urinal Toilet # Unmeasured Voids Void 1 Bowel Movement No Height 6 ft 1 in 6 ft 1 in Body Mass Index (BMI) 29.2 29.2 Weight Measurement Method Est/Stated by Patient Active Medications Acetaminophen (Tylenol -) 650 mg PO Q6H PRN PRN Reason: PAIN LEVEL 1-5 Heparin Sodium (Porcine) (Heparin -) 1,000 unit IVPUSH PRN PRN PRN Reason: Heparin Heparin Sodium (Porcine) (Heparin -) 5,000 unit IVPUSH PRN PRN PRN Reason: Heparin Last Admin: 04/03/19 22:50 Dose: 5,000 unit Heparin Sodium/Dextrose (Heparin Infusion -) 25,000 units in 500 mls @ 20 mls/ hr IVPB TITR [facility]; Protocol Last Admin: 04/04/19 10:39 Dose: 1,050 units/hr, 21 mls/hr Azithromycin (Zithromax 500mg Ivpb (Pre-Docked)) 500 mg in 250 mls @ 250 mls/ hr IVPB DAILY [facility] Ceftriaxone Sodium 1 gm/ (Dextrose) 50 mls @ 100 mls/hr IVPB DAILY [facility]; Protocol Last Admin: 04/04/19 11:00 Dose: 100 mls/hr Levetiracetam (Keppra -) 500 mg PO BID [facility] Last Admin: 04/04/19 10:39 Dose: 500 mg Sacubitril/Valsartan (Entresto 49 Mg-51 Mg Tablet) 1 tab PO BID [facility] Last Admin: 04/04/19 10:59 Dose: 1 tab CBC, BMP 04/03/19 10:30 04/04/19 05:30 echo- noted physical exam Constitutional: Yes: No Distress, Calm, Obese Eyes: Yes: WNL, Conjunctiva Clear, PERRL HENT: Yes: WNL Neck: Yes: Supple Cardiovascular: Yes: Regular Rate and Rhythm Respiratory: Yes: CTA Bilaterally Gastrointestinal: Yes: Soft Edema: No Neurological: Yes: WNL, Alert Assessment/Plan Discussed wants to cut down / stop diuretics meds reviewed Blood pressure also on low side Will hold furosemide and monitor Heparin drip abx for pneumonia ultrasound negative for DVT will follow Problem List - Problems (1) Chest pain Code(s): R07.9 - CHEST PAIN, UNSPECIFIED (2) Pneumonia Code(s): J18.9 - PNEUMONIA, UNSPECIFIED ORGANISM (3) Pulmonary embolism and infarction Code(s): I26.99 - OTHER PULMONARY EMBOLISM WITHOUT ACUTE COR PULMONALE (4) Elevated troponin Code(s): R79.89 - OTHER SPECIFIED ABNORMAL FINDINGS OF BLOOD CHEMISTRY (5) Renal insufficiency Code(s): N28.9 - DISORDER OF KIDNEY AND URETER, UNSPECIFIED
[2019-04-04] MEDS: AZITHROMYCIN IVPB 500 MG/250 ML BAG IVPB SCH (12:12)
--- NOTE | 2019-04-04 15:28 | CON.PULM ---
Consult Consult Specialty:: PULMONARY Referred by:: Dr Rousseau Reason for Consultation:: chest pain - History of Present Illness Chief Complaint: chest pain History of Present Illness: 68yo male with h/o HTN, hyperlipidemia, LV systolic dysfunction, CKD, h/o MVR who was admitted with right sided chest pain. Pain worse with deep inspiration. Denies shortness of breath or palpitations. No fevers, chills or sweats. Found to have a subsegmental PE on CTA chest, started on anticoagulation. Denies personal or family history of VTE. He does lead a sedentary lifestyle, mostly on the couch watching TV. No leg trauma. He is a remote smoker. - History Source History Provided By: Patient, Medical Record Limitations to Obtaining History: No Limitations - Past Medical History TAR CHASER: Yes: CVA Cardio/Vascular: Yes: HTN, Other (mechanical mitral valve) Gastrointestinal: Yes: GERD Renal/: Yes: Renal Inusuff - Alcohol/Substance Use Hx Alcohol Use: No - Smoking History Smoking history: Never smoked Have you smoked in the past 12 months: No Aproximately how many cigarettes per day: 10 Home Medications - Allergies Allergies/Adverse Reactions: Allergies Allergy/AdvReac Type Severity Reaction Status Date / Time No Known Allergies Allergy Verified 04/03/19 09:53 - Home Medications Home Medications: Ambulatory Orders Sacubitril/Valsartan [Entresto 49 mg-51 mg Tablet] 1 tab PO BID 05/11/18 Torsemide 100 mg PO BID 05/11/18 Review of Systems - Review of Systems Constitutional: denies: Chills, Lethargy Eyes: denies: Recent Change in Vision HENT: denies: Nasal Congestion, Throat Pain Neck: denies: Stiffness, Tenderness Cardiovascular: reports: Chest Pain, Edema. denies: Palpitations, Shortness of Breath Respiratory: denies: Cough, Hemoptysis, Wheezing Gastrointestinal: denies: Abdominal Pain, Nausea, Vomiting Genitourinary: denies: Dysuria, Hematuria Neurological: denies: Dizziness, Headache Endocrine: denies: Unexplained Weight Loss Physical Exam Vital Sings: Vital Signs Temperature 98.7 F 04/04/19 08:00 Pulse Rate 76 04/04/19 08:00 Respiratory Rate 18 04/04/19 08:00 Blood Pressure 100/66 04/04/19 08:00 O2 Sat by Pulse Oximetry (%) 100 04/04/19 08:00 Constitutional: Yes: Calm Eyes: Yes: Conjunctiva Clear, EOM Intact HENT: Yes: Atraumatic, Normocephalic Neck: Yes: Supple, Trachea Midline Cardiovascular: Yes: Regular Rate and Rhythm Respiratory: Yes: Diminished (decreased breath sounds at the bases) ...Clubbing: No Gastrointestinal: Yes: Normal Bowel Sounds, Soft. No: Tenderness Edema: Yes Labs: CBC, BMP 04/03/19 10:30 04/04/19 05:30 Imaging - Results Chest X-ray: Report Reviewed, Image Reviewed Cat Scan: Report Reviewed, Image Reviewed (RML PE with infarct) Problem List - Problems (1) Pulmonary embolism and infarction Code(s): I26.99 - OTHER PULMONARY EMBOLISM WITHOUT ACUTE COR PULMONALE Assessment/Plan Acute PE with Pulmonary Infarct LV Systolic Dysfunction h/o MVR Hyperlipidemia h/o CVA CKD - can start oral anticoagulation - O2 to keep SpO2 >90% - pain control - will likely need anticoagulation for at least 6 months Thank you for this consult Ramsey Goss MD
--- NOTE | 2019-04-04 17:36 | CON.GU ---
Consult Consult Specialty:: Referred by:: medicine Reason for Consultation:: urinary frequency - History of Present Illness Chief Complaint: urinary frequency History of Present Illness: 68 year old male who denies previous urinary complaints who has been on aggressive diuretic therapy for fluid overload here during this admission and has been experiencing frequency. Strong urinary stream. No prior history. 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 Cardio/Vascular: Yes: HTN, Other (mechanical mitral valve) Gastrointestinal: Yes: GERD Renal/: Yes: Renal Inusuff - Alcohol/Substance Use Hx Alcohol Use: No - Smoking History Smoking history: Never smoked Have you smoked in the past 12 months: No Aproximately how many cigarettes per day: 10 Home Medications - Allergies Allergies/Adverse Reactions: Allergies Allergy/AdvReac Type Severity Reaction Status Date / Time No Known Allergies Allergy Verified 04/03/19 09:53 - Home Medications Home Medications: Ambulatory Orders Sacubitril/Valsartan [Entresto 49 mg-51 mg Tablet] 1 tab PO BID 05/11/18 Torsemide 100 mg PO BID 05/11/18 Review of Systems - Review of Systems Genitourinary: reports: Frequency, Urgency Physical Exam- Vital Signs: Vital Signs Temperature 98.4 F 04/04/19 14:10 Pulse Rate 87 04/04/19 14:10 Respiratory Rate 16 04/04/19 14:10 Blood Pressure 87/57 L 04/04/19 14:10 O2 Sat by Pulse Oximetry (%) 100 04/04/19 08:00 Constitutional: Yes: Well Nourished, No Distress, Calm Renal/: No: Bladder Distention, CVA Tenderness - Left, CVA Tenderness - Right , Vasquez Present Labs: CBC, BMP 04/03/19 10:30 04/04/19 05:30 Problem List - Problems (1) Urinary frequency Assessment/Plan: recommend renal/bladder sonogram Code(s): R35.0 - FREQUENCY OF MICTURITION
[2019-04-05] MEDS ORDERED: cefTRIAXone SODIUM 1 GM VIAL ONE (07:26)
[2019-04-05] MEDS ORDERED: DEXTROSE 5%-WATER - 50 ML IVPB ONE (07:27)
[2019-04-05 07:38] LABS: HEMATOCRIT 43.4 % (35.4-49); HEMOGLOBIN 14.2 GM/dL (11.7-16.9); MCH 27.3 pg (25.7-33.7); MCHC 32.9 g/dl (32.0-35.9); MEAN CELL VOLUME 83.2 fl (80-96); MEAN PLT VOLUME 8.2 fl (7.5-11.1); PLATELET COUNT 224 K/MM3 (134-434); RBC 5.21 M/mm3 (4.00-5.60); RDW 16.8 % (11.9-15.9); WHITE BLOOD COUNT 4.4 K/mm3 (4.0-10.0)
[2019-04-05] MEDS ORDERED: PT OWN MED DRAWER 7, Y5N ONE (09:20)
[2019-04-05] MEDS: AZITHROMYCIN IVPB 500 MG/250 ML BAG IVPB SCH (09:51)
[2019-04-05] MEDS: SACUBITRIL/VALSARTAN 49 MG-51 MG TABLET PO SCH (09:51)
[2019-04-05] MEDS: CEFTRIAXONE 1 GM in DEXTROSE 5%-WATER - 50 ML IVPB SCH (09:51)
[2019-04-05] MEDS ORDERED: levETIRAcetam 500 MG TABLET (FP) PO SCH (10:00)
--- NOTE | 2019-04-05 10:11 | PN ---
Progress Note, Physician Chief Complaint: feeling well Denies CP or SOB TELE: NSR w/ rare VPCs History of Present Illness: EF 45% RV grossly nl size, fx, insuffient TR to calculate RVSP - Current Medication List Current Medications: Active Medications Acetaminophen (Tylenol -) 650 mg PO Q6H PRN PRN Reason: PAIN LEVEL 1-5 Heparin Sodium (Porcine) (Heparin -) 1,000 unit IVPUSH PRN PRN PRN Reason: Heparin Last Admin: 04/04/19 20:20 Dose: 1,000 unit Heparin Sodium (Porcine) (Heparin -) 5,000 unit IVPUSH PRN PRN PRN Reason: Heparin Last Admin: 04/03/19 22:50 Dose: 5,000 unit Heparin Sodium/Dextrose (Heparin Infusion -) 25,000 units in 500 mls @ 20 mls/ hr IVPB TITR [facility]; Protocol Last Admin: 04/04/19 20:22 Dose: 1,150 units/hr, 23 mls/hr Azithromycin (Zithromax 500mg Ivpb (Pre-Docked)) 500 mg in 250 mls @ 250 mls/ hr IVPB DAILY [facility] Last Admin: 04/05/19 09:51 Dose: 250 mls/hr Ceftriaxone Sodium 1 gm/ (Dextrose) 50 mls @ 100 mls/hr IVPB DAILY [facility]; Protocol Last Admin: 04/05/19 09:51 Dose: 100 mls/hr Levetiracetam (Keppra -) 500 mg PO DAILY [facility] Last Admin: 04/05/19 09:50 Dose: 500 mg Sacubitril/Valsartan (Entresto 49 Mg-51 Mg Tablet) 1 tab PO BID [facility] Last Admin: 04/05/19 09:51 Dose: 1 tab - Objective Vital Signs: Vital Signs Temperature 97.8 F 04/05/19 06:00 Pulse Rate 86 04/05/19 06:00 Respiratory Rate 20 04/05/19 06:00 Blood Pressure 110/54 L 04/05/19 06:00 O2 Sat by Pulse Oximetry (%) 99 04/04/19 21:00 Constitutional: Yes: No Distress Cardiovascular: Yes: Regular Rate and Rhythm Respiratory: Yes: CTA Bilaterally Gastrointestinal: Yes: Soft Edema: No Neurological: Yes: Alert, Oriented Labs: CBC, BMP 04/05/19 06:00 04/04/19 05:30 INR, PTT INR 1.03 (0.83-1.09) 04/03/19 10:30 - ....Imaging EKG: Image Reviewed Assessment/Plan Assessment/Plan CTA chest: PE within RML branches, consolidation RML c/w PNA, consolidation in R lung base with trace R pleural effusion CXR: no congestion EKG: sinus, old inf infarct, no ischemic changes 68M h/o chronic systolic HF, s/p MVR, HLD p/w R sided chest pain with PE: PE, chest pain: - on heparin gtt for AC. Switch to NOAC when ok w/ Pulmonary. - elevated trop and BNP likely in setting of PE - also consolidation noted on CTA chest - received dose of IV abx - Echo with grossly nl RV size, fx. Insufficient TR signal to calculate RVSP. - No sig arrhythmias on tele: rare VPCs. Chronic systolic HF - appears euvolemic, no congestion on CXR - per patient has stable edema - cont home meds incl entresto; Torsemide held due to episode lowish BP on 04/04, now improved. -Resume when BP trend stable, at lower dose. s/p bio MVR - [facility] MVR given history of prior ICH - Likely can d/c ASA now that he will be on NOAC moving forward - echo reviewed. -SBE prophylaxis prior to dental work advised CAD - elevated trop likely in setting of PE, not ACS - cont home meds CKD - stable, monitor Cr
--- NOTE | 2019-04-05 10:42 | PN ---
Progress Note (short form) - Note Progress Note: PULMONARY States chest pain resolved. No shortness of breath. Vital Signs Period Temp Pulse Resp BP Sys/Charles Pulse Ox Last 24 Hr 97.6 F-98.4 F 74-91 16-20 87-120/53-71 99 Gen: NAD at rest Heart: RRR Lung: decreased breath sounds at the bases Abd: soft, nontender Ext: no edema CBC, BMP 04/05/19 06:00 04/04/19 05:30 Active Medications Acetaminophen (Tylenol -) 650 mg PO Q6H PRN PRN Reason: PAIN LEVEL 1-5 Heparin Sodium (Porcine) (Heparin -) 1,000 unit IVPUSH PRN PRN PRN Reason: Heparin Last Admin: 04/04/19 20:20 Dose: 1,000 unit Heparin Sodium (Porcine) (Heparin -) 5,000 unit IVPUSH PRN PRN PRN Reason: Heparin Last Admin: 04/03/19 22:50 Dose: 5,000 unit Heparin Sodium/Dextrose (Heparin Infusion -) 25,000 units in 500 mls @ 20 mls/ hr IVPB TITR [facility]; Protocol Last Admin: 04/04/19 20:22 Dose: 1,150 units/hr, 23 mls/hr Azithromycin (Zithromax 500mg Ivpb (Pre-Docked)) 500 mg in 250 mls @ 250 mls/ hr IVPB DAILY [facility] Last Admin: 04/05/19 09:51 Dose: 250 mls/hr Ceftriaxone Sodium 1 gm/ (Dextrose) 50 mls @ 100 mls/hr IVPB DAILY [facility]; Protocol Last Admin: 04/05/19 09:51 Dose: 100 mls/hr Levetiracetam (Keppra -) 500 mg PO DAILY [facility] Last Admin: 04/05/19 09:50 Dose: 500 mg Sacubitril/Valsartan (Entresto 49 Mg-51 Mg Tablet) 1 tab PO BID [facility] Last Admin: 04/05/19 09:51 Dose: 1 tab A/P Acute PE with Pulmonary Infarct LV Systolic Dysfunction h/o MVR Hyperlipidemia h/o CVA CKD - can start oral anticoagulation, will start eliquis 10mg BID x 7 days then decrease to 5mg BID for maintenance - O2 to keep SpO2 >90% - pain control - will likely need anticoagulation for at least 6 months Problem List - Problems (1) Pulmonary embolism and infarction Code(s): I26.99 - OTHER PULMONARY EMBOLISM WITHOUT ACUTE COR PULMONALE
[2019-04-05] MEDS ORDERED: APIXABAN 5 MG TABLET PO SCH (10:45)
[2019-04-05 11:16] LABS: INR 1.1 (0.83-1.09)
--- NOTE | 2019-04-05 13:33 | DS ---
Physical Examination Vital Signs: Vital Signs Temperature 97.8 F 04/05/19 06:00 Pulse Rate 86 04/05/19 06:00 Respiratory Rate 20 04/05/19 06:00 Blood Pressure 110/54 L 04/05/19 06:00 O2 Sat by Pulse Oximetry (%) 99 04/04/19 21:00 Findings/Remarks: pt seen/ examined feels well no complains ambulatory in [address] afebrile denies cough Constitutional: Yes: No Distress, Calm Eyes: Yes: Conjunctiva Clear Neck: Yes: Supple Cardiovascular: Yes: Regular Rate and Rhythm Respiratory: Yes: CTA Bilaterally Gastrointestinal: Yes: Soft Edema: No Neurological: Yes: Alert Labs: CBC, BMP 04/05/19 06:00 04/04/19 05:30 Discharge Summary Reason For Visit: ELEVATED TROPONIN LEVEL;PULMONARY Current Active Problems Chest pain (Acute) Pneumonia (Acute) Pulmonary embolism and infarction (Acute) Urinary frequency (Acute) Hospital Course: Admitted for PE/ Pneumonia dvt -ve treated with abx/ heparin much better d/c on Eliquis-- 10 mg bid x 7 days and then 5 mg bid -- For 6 months. Repeat cxr - 3-4 weeks - document clearing of Pneumonia Discussed with pt Meds reconcilled Send to pharmacy Abx also send Pt in agreement Condition: Stable - Instructions Disposition: HOME - Home Medications Comprehensive Discharge Medication List: Ambulatory Orders Sacubitril/Valsartan [Entresto 49 mg-51 mg Tablet] 1 tab PO BID 05/11/18 Amoxicillin/Potassium Clav [Augmentin 875-125 Tablet] 1 each PO BID 5 Days #10 tablet 04/05/19 Apixaban [Eliquis -] 10 mg PO BID 30 Days #60 tablet 04/05/19 levETIRAcetam [Keppra -] 500 mg PO DAILY tablet 04/05/19
[2019-04-05 15:03] VITALS: BP 138/53; PULSE 83; TEMP 97.6
== END 2019-04-05 15:58 | disposition home or self-care (01) | DRG 175 ==
LOC: JER 09:51 → JERBED 11:34 → J4W 20:17
PROVIDERS: ADMIT Internal Medicine; ATTEND Internal Medicine
DX: I26.99 Other pulmonary embolism without acute cor pulmonale (principal); J18.9 Pneumonia, unspecified organism; I13.0 Hypertensive heart and chronic kidney disease with heart failure and stage 1 through stage 4 chronic kidney disease, or unspecified chronic kidney disease; I50.22 Chronic systolic (congestive) heart failure; N18.9 Chronic kidney disease, unspecified; E78.5 Hyperlipidemia, unspecified; Z95.4 Presence of other heart-valve replacement; Z95.1 Presence of aortocoronary bypass graft; Z86.73 Personal history of transient ischemic attack (TIA), and cerebral infarction without residual deficits; E11.22 Type 2 diabetes mellitus with diabetic chronic kidney disease; E66.9 Obesity, unspecified; Z68.29 Body mass index [BMI] 29.0-29.9, adult; I34.0 Nonrheumatic mitral (valve) insufficiency; R35.0 Frequency of micturition; R74.8 Abnormal levels of other serum enzymes
CPT/HCPCS: 36415; 71045-TC-FY; 71275-TC; 76775-TC; 76856-TC; 80053; 80061; 82272; 83036; 83690; 83721; 83735; 83880; 84443; 84484; 85025; 85027; 85379; 85610; 85730; 93005; 93010; 93306-TC; 93970-TC; 99285-25; J0131; J1644

== ENCOUNTER 2022-10-08 08:28 | Inpatient (IN) | payer OTHER ==
[2022-10-08 08:47] VITALS: BMI 29.5
[2022-10-08 10:46] LABS: BASO % 0.2 % (0-2.0); EOS % 1.3 % (0-4.5); HEMATOCRIT 47.1 % (35.4-49); LYMPH % 14.1 % (8-40); MCH 27.2 pg (25.7-33.7); MCHC 31.8 g/dl (32.0-35.9); MEAN CELL VOLUME 85.7 fl (80-96); MEAN PLT VOLUME 8.3 fl (7.5-11.1); MONO % 10.4 % (3.8-10.2); PLATELET COUNT 270 10^3/uL (134-434); RBC 5.49 M/mm3 (4.00-5.60); RDW 16.8 % (11.9-15.9)
[2022-10-08 10:50] LABS: CHLORIDE 89 mmol/L (98-107)
[2022-10-08 10:52] LABS: ALBUMIN 2.7 g/dl (3.4-5.0); CALCIUM 8.2 mg/dL (8.5-10.1)
[2022-10-08 10:53] LABS: BLOOD UREA NITROGEN 25.1 mg/dL (7-18); GLUCOSE,RANDOM 90 mg/dL (74-106)
[2022-10-08] MEDS ORDERED: HEPARIN NA (PORCINE) 5,000 UNITS/ML 1ML VIAL IVPUSH ONE (11:16)
[2022-10-08] MEDS ORDERED: HEPARIN NA (PORCINE) 5,000 UNITS/ML 1ML VIAL IVPUSH PRN (11:19)
[2022-10-08] MEDS ORDERED: HEPARIN INFUSION - 25,000 UNITS/500 ML INFUS.BAG IVPB ONE (11:42)
[2022-10-08] MEDS ORDERED: HEPARIN NA (PORCINE) 5,000 UNITS/ML 1ML VIAL ONE (11:42)
[2022-10-08 11:51] LABS: SODIUM 100 mmol/L (136-145); TOT PROT 13.8 g/dl (6.4-8.2)
[2022-10-08] MEDS: HEPARIN - 25,000 UNIT in SODIUM CHLORIDE 495 ML IV SCH (12:30)
[2022-10-08 12:51] LABS: INR 1.22 (0.83-1.09); PROTHROMBIN TIME (PATIENT) 14.1 SEC (9.7-13.0)
[2022-10-08 13:00] LABS: BLOOD UREA NITROGEN 24.5 mg/dL (7-18); CALCIUM 9.4 mg/dL (8.5-10.1)
[2022-10-08 13:05] LABS: BILIRUBIN,TOTAL 1.1 mg/dL (0.2-1)
[2022-10-08 13:06] LABS: ALBUMIN 3.6 g/dl (3.4-5.0); TOT PROT 8.7 g/dl (6.4-8.2)
[2022-10-08] MEDS: traMADol HCL 50 MG TABLET PO PRN (16:28)
[2022-10-08] MEDS: SACUBITRIL/VALSARTAN 49 MG-51 MG TABLET PO SCH (22:52)
[2022-10-08] MEDS: ATORVASTATIN CA 20 MG TABLET (FP) PO SCH (22:52)
[2022-10-08] MEDS: CARVEDILOL 6.25 MG TABLET (FP) PO SCH (23:15)
[2022-10-09] MEDS: HEPARIN NA (PORCINE) 5,000 UNITS/ML 1ML VIAL IVPUSH PRN ×2 (02:29→02:35)
[2022-10-09] MEDS: traMADol HCL 50 MG TABLET PO PRN (07:04)
[2022-10-09] MEDS: levETIRAcetam 500 MG TABLET (FP) PO SCH (09:27)
[2022-10-09 09:46] LABS: HEMATOCRIT 46.5 % (35.4-49); HEMOGLOBIN 15.2 GM/dL (11.7-16.9); MCH 27.2 pg (25.7-33.7); MCHC 32.7 g/dl (32.0-35.9); MEAN CELL VOLUME 83.3 fl (80-96); MEAN PLT VOLUME 7.7 fl (7.5-11.1); PLATELET COUNT 296 10^3/uL (134-434); RBC 5.58 M/mm3 (4.00-5.60); RDW 16.2 % (11.9-15.9); WHITE BLOOD COUNT 7.3 K/mm3 (4.0-10.0)
[2022-10-09] MEDS ORDERED: TORSEMIDE 20 MG TABLET (FP) PO SCH (10:00)
[2022-10-09 10:13] LABS: CALCIUM 9.2 mg/dL (8.5-10.1)
[2022-10-09 10:14] LABS: BLOOD UREA NITROGEN 28.3 mg/dL (7-18)
[2022-10-09 10:17] LABS: CREATININE 1.8 mg/dL (0.55-1.3)
[2022-10-09] MEDS: HEPARIN - 25,000 UNIT in SODIUM CHLORIDE 495 ML IV SCH ×3 (10:32→17:45)
[2022-10-09] MEDS: SACUBITRIL/VALSARTAN 49 MG-51 MG TABLET PO SCH (10:37)
[2022-10-09] MEDS: CARVEDILOL 6.25 MG TABLET (FP) PO SCH (10:37)
[2022-10-09] MEDS ORDERED: WARFARIN NA 5 MG TABLET PO SCH (18:00)
[2022-10-10] MEDS: SACUBITRIL/VALSARTAN 49 MG-51 MG TABLET PO SCH ×4 (00:29→21:43)
[2022-10-10] MEDS: CARVEDILOL 6.25 MG TABLET (FP) PO SCH ×4 (00:29→21:43)
[2022-10-10] MEDS: ATORVASTATIN CA 20 MG TABLET (FP) PO SCH ×2 (00:30→21:43)
[2022-10-10] MEDS: traMADol HCL 50 MG TABLET PO PRN (08:41)
[2022-10-10 09:22] LABS: BASO % 0.4 % (0-2.0); EOS % 3.8 % (0-4.5); HEMATOCRIT 44.3 % (35.4-49); HEMOGLOBIN 14.4 GM/dL (11.7-16.9); MCH 26.9 pg (25.7-33.7); MCHC 32.4 g/dl (32.0-35.9); MEAN CELL VOLUME 83.1 fl (80-96); MEAN PLT VOLUME 8.1 fl (7.5-11.1); MONO % 12.7 % (3.8-10.2); NEUT % 52.1 % (42.8-82.8); PLATELET COUNT 270 10^3/uL (134-434); RBC 5.33 M/mm3 (4.00-5.60); RDW 15.9 % (11.9-15.9); WHITE BLOOD COUNT 5.5 K/mm3 (4.0-10.0)
[2022-10-10 09:26] LABS: INR 1.04 (0.83-1.09); PROTHROMBIN TIME (PATIENT) 12.1 SEC (9.7-13.0)
[2022-10-10 09:29] LABS: ACTIVATED PTT 36.5 SECONDS (25.2-36.5)
[2022-10-10] MEDS: HEPARIN - 25,000 UNIT in SODIUM CHLORIDE 495 ML IV SCH ×3 (09:57→21:45)
[2022-10-10 09:58] LABS: ALBUMIN 3.2 g/dl (3.4-5.0); CALCIUM 8.9 mg/dL (8.5-10.1)
[2022-10-10] MEDS: levETIRAcetam 500 MG TABLET (FP) PO SCH (09:59)
[2022-10-10 10:02] LABS: CREATININE 1.5 mg/dL (0.55-1.3)
[2022-10-10 10:03] LABS: BILIRUBIN,TOTAL 0.9 mg/dL (0.2-1); TOT PROT 7.5 g/dl (6.4-8.2)
[2022-10-10] MEDS: HEPARIN NA (PORCINE) 5,000 UNITS/ML 1ML VIAL IVPUSH PRN (17:00)
[2022-10-10] MEDS ORDERED: oxyCODONE HCL 5 MG TABLET PO PRN (17:12)
[2022-10-11] MEDS: HEPARIN NA (PORCINE) 5,000 UNITS/ML 1ML VIAL IVPUSH PRN (00:38)
[2022-10-11] MEDS: levETIRAcetam 500 MG TABLET (FP) PO SCH (09:02)
[2022-10-11] MEDS: CARVEDILOL 6.25 MG TABLET (FP) PO SCH ×2 (09:02→22:17)
[2022-10-11] MEDS: SACUBITRIL/VALSARTAN 49 MG-51 MG TABLET PO SCH ×2 (09:02→22:16)
[2022-10-11 09:25] LABS: HEMATOCRIT 43.2 % (35.4-49); HEMOGLOBIN 14.2 GM/dL (11.7-16.9); MCH 27.4 pg (25.7-33.7); MCHC 32.9 g/dl (32.0-35.9); MEAN CELL VOLUME 83.2 fl (80-96); MEAN PLT VOLUME 7.7 fl (7.5-11.1); PLATELET COUNT 268 10^3/uL (134-434); RBC 5.19 M/mm3 (4.00-5.60); RDW 16.1 % (11.9-15.9); WHITE BLOOD COUNT 5.5 K/mm3 (4.0-10.0)
[2022-10-11 09:28] LABS: INR 1.09 (0.83-1.09); PROTHROMBIN TIME (PATIENT) 12.6 SEC (9.7-13.0)
[2022-10-11 09:31] LABS: ACTIVATED PTT 51.3 SECONDS (25.2-36.5)
[2022-10-11] MEDS ORDERED: ACETAMINOPHEN 500 MG TABLET (FP) PO PRN (10:18)
[2022-10-11] MEDS: HEPARIN - 25,000 UNIT in SODIUM CHLORIDE 495 ML IV SCH (17:13)
[2022-10-11] MEDS: ATORVASTATIN CA 20 MG TABLET (FP) PO SCH (22:16)
[2022-10-12] MEDS: SACUBITRIL/VALSARTAN 49 MG-51 MG TABLET PO SCH ×2 (09:12→21:36)
[2022-10-12] MEDS: CARVEDILOL 6.25 MG TABLET (FP) PO SCH ×2 (09:12→21:36)
[2022-10-12] MEDS: levETIRAcetam 500 MG TABLET (FP) PO SCH (09:12)
[2022-10-12 10:25] LABS: INR 1.14 (0.83-1.09); PROTHROMBIN TIME (PATIENT) 13.2 SEC (9.7-13.0)
[2022-10-12 10:26] LABS: HEMOGLOBIN 13.7 GM/dL (11.7-16.9); MCH 27.8 pg (25.7-33.7); MCHC 33.3 g/dl (32.0-35.9); MEAN CELL VOLUME 83.4 fl (80-96); MEAN PLT VOLUME 7.7 fl (7.5-11.1); PLATELET COUNT 270 10^3/uL (134-434); RBC 4.92 M/mm3 (4.00-5.60); RDW 15.6 % (11.9-15.9); WHITE BLOOD COUNT 6.5 K/mm3 (4.0-10.0)
[2022-10-12] MEDS: HEPARIN - 25,000 UNIT in SODIUM CHLORIDE 495 ML IV SCH (14:42)
[2022-10-12 20:31] VITALS: RESP 18
[2022-10-12] MEDS: ATORVASTATIN CA 20 MG TABLET (FP) PO SCH (21:36)
[2022-10-12] MEDS: APIXABAN 5 MG TABLET PO SCH (21:36)
[2022-10-13 08:44] LABS: HEMATOCRIT 41.1 % (35.4-49); HEMOGLOBIN 13.5 GM/dL (11.7-16.9); MCH 27.3 pg (25.7-33.7); MCHC 32.9 g/dl (32.0-35.9); MEAN CELL VOLUME 82.7 fl (80-96); MEAN PLT VOLUME 7.5 fl (7.5-11.1); PLATELET COUNT 284 10^3/uL (134-434); RBC 4.96 M/mm3 (4.00-5.60); RDW 15.4 % (11.9-15.9); WHITE BLOOD COUNT 5.8 K/mm3 (4.0-10.0)
[2022-10-13] MEDS: CARVEDILOL 6.25 MG TABLET (FP) PO SCH (09:16)
[2022-10-13] MEDS: levETIRAcetam 500 MG TABLET (FP) PO SCH (09:16)
[2022-10-13] MEDS: SACUBITRIL/VALSARTAN 49 MG-51 MG TABLET PO SCH (09:16)
[2022-10-13] MEDS: APIXABAN 5 MG TABLET PO SCH (09:16)
[2022-10-13 13:43] VITALS: BP 116/67; PULSE 67; TEMP 98.4
== END 2022-10-13 14:54 | disposition home or self-care (01) | DRG 300 ==
LOC: JER 08:28 → JERBED 11:21 → J6S 13:42
PROVIDERS: ADMIT Internal Medicine; ATTEND Internal Medicine
DX: I82.401 Acute embolism and thrombosis of unspecified deep veins of right lower extremity (principal); I50.22 Chronic systolic (congestive) heart failure; I69.351 Hemiplegia and hemiparesis following cerebral infarction affecting right dominant side; I12.9 Hypertensive chronic kidney disease with stage 1 through stage 4 chronic kidney disease, or unspecified chronic kidney disease; N18.9 Chronic kidney disease, unspecified; Z95.2 Presence of prosthetic heart valve; E78.5 Hyperlipidemia, unspecified; I48.91 Unspecified atrial fibrillation; K21.9 Gastro-esophageal reflux disease without esophagitis; I25.10 Atherosclerotic heart disease of native coronary artery without angina pectoris; Z79.01 Long term (current) use of anticoagulants; R35.0 Frequency of micturition; F17.210 Nicotine dependence, cigarettes, uncomplicated; Z95.1 Presence of aortocoronary bypass graft; R60.0 Localized edema
CPT/HCPCS: 36415; 71045-TC-FY; 76775-TC; 80048; 80053; 85025; 85027; 85610; 85730; 93005; 93010; 93971-TC; 97116-GP; 97162-GP; 99285-25; C9803-CS; J1644; U0003; U0005

== ENCOUNTER 2025-03-20 05:13 | Inpatient (IN) | payer OTHER, BC ==
[2025-03-20] MEDS: SODIUM CHLORIDE 0.9% 1000 ML INFUS.BAG IV STA (05:43)
[2025-03-20 06:11] LABS: INR 1.04 (0.83-1.09); PROTHROMBIN TIME (PATIENT) 11.3 SEC (9.7-13.0)
[2025-03-20 06:14] LABS: ACTIVATED PTT 28.0 SECONDS (25.2-36.5)
[2025-03-20 06:29] LABS: BG HCT 47.0 % (35.4-49); VENOUS BASE EXCESS -5.5 mmol/L (-2-2); VENOUS O2 SATURATION 41.6 % (70-80); VENOUS PCO2 45.4 mmHg (38-52); VENOUS PH 7.286 (7.310-7.410)
[2025-03-20 06:36] LABS: ABSOLUTE IMMATURE GRANULOCYTES 0.03 x10^3/uL (0.0-0.031); BASOPHILS # 0.03 x10^3/uL (0.01-0.08); EOSINOPHIL % 1.3 % (0.8-7.0); EOSINOPHILS # 0.10 x10^3/uL (0.04-0.54); MCHC 32.0 g/dl (32.3-36.5); MEAN CELL VOLUME 84.9 fl (79.0-92.2); MEAN PLT VOLUME 12.4 fl (9.4-12.4); MONOCYTE # 0.76 x10^3/uL (0.30-0.82); MONOCYTE % 10.2 % (5.3-12.2); RDW 13.8 % (12.2-16.6)
[2025-03-20 06:48] LABS: CO2 22 mmol/L (21-32)
[2025-03-20 06:51] LABS: CREATININE 3.1 mg/dL (0.55-1.3); SGOT/AST 8 U/L (15-37); SGPT/ALT 13 U/L (13-61)
[2025-03-20 06:53] LABS: TOT PROT 7.0 g/dl (6.4-8.2)
[2025-03-20 06:54] LABS: ALK PHOS 104 U/L (45-117)
[2025-03-20 06:56] LABS: GLUCOSE,RANDOM 762 mg/dL (74-106); LACTIC ACID 2.4 mmol/L (0.4-2.0)
[2025-03-20] MEDS: SODIUM CHLORIDE 0.9% 500 ML INFUS.BAG IV ONE (06:57)
[2025-03-20 07:09] LABS: EPI CELLS 3 /uL (0-25.1); HYALINE CASTS 1 /uL (0-3.1); URINE APPEARANCE CLOUDY; URINE BACTERIA >9,000 /uL (0-1359); URINE BILIRUBIN NEGATIVE (NEGATIVE); URINE COLOR YELLOW; URINE GLUCOSE (UA) 3+ (NEGATIVE); URINE KETONE TRACE (NEGATIVE); URINE LEUK ESTERASE 1+ (NEGATIVE); URINE NITRITE NEGATIVE (NEGATIVE); URINE PROTEIN NEGATIVE (NEGATIVE); URINE RBC 14 /uL (0-23.9); URINE UROBILINOGEN 0.2 mg/dL (0.2-1.0); URINE WBC 510 /uL (0-25.8)
[2025-03-20 07:17] LABS: N-TERMINAL BNP 1479.5 pg/ml (5-125)
[2025-03-20] MEDS ORDERED: SODIUM BICARBONATE 8.4% 50 MEQ/50 ML DISP.SYRIN ONE (07:32)
[2025-03-20] MEDS ORDERED: CALCIUM GLUCONATE 10% - 1,000 MG/10 ML VIAL ONE (07:32)
[2025-03-20] MEDS ORDERED: INSULIN REGULAR HUMAN 100 UNITS/ML *VIAL ONE (07:32)
[2025-03-20] MEDS: CALCIUM GLUCONATE 10% - 1,000 MG/10 ML VIAL IVPUSH ONE (07:49)
[2025-03-20] MEDS: INSULIN REGULAR HUMAN 100 UNITS/ML *VIAL IVPUSH ONE (07:50)
[2025-03-20] MEDS: SODIUM ZIRCONIUM CYCLOSILICATE (LOKELMA) 5 GM PACKET PO ONE (07:51)
[2025-03-20] MEDS: SODIUM BICARBONATE 8.4% 50 MEQ/50 ML VIAL IVPB ONE (07:51)
[2025-03-20] MEDS ORDERED: CEFTRIAXONE 1 GM/50 ML BAG ONE (08:06)
[2025-03-20] MEDS: CEFTRIAXONE 1 GM in DEXTROSE 5%-WATER - 100 ML IVPB ONE (08:07)
[2025-03-20 09:29] LABS: BG HCT 38.0 % (35.4-49); VENOUS BASE EXCESS -5.0 mmol/L (-2-2); VENOUS O2 SATURATION 23.4 % (70-80); VENOUS PCO2 38.8 mmHg (38-52); VENOUS PH 7.337 (7.310-7.410)
[2025-03-20 10:04] LABS: CO2 23 mmol/L (21-32)
[2025-03-20 10:07] LABS: CREATININE 2.5 mg/dL (0.55-1.3); SGOT/AST 10 U/L (15-37); SGPT/ALT 11 U/L (13-61)
[2025-03-20 10:09] LABS: TOT PROT 6.3 g/dl (6.4-8.2)
[2025-03-20 10:10] LABS: ALK PHOS 92 U/L (45-117)
[2025-03-20 10:13] LABS: GLUCOSE,RANDOM 637 mg/dL (74-106)
[2025-03-20] MEDS ORDERED: ACETAMINOPHEN 325 MG TABLET (FP) PO PRN (10:41)
[2025-03-20 10:50] LABS: CO2 24 mmol/L (21-32)
[2025-03-20 10:53] LABS: CREATININE 2.4 mg/dL (0.55-1.3); SGOT/AST 8 U/L (15-37); SGPT/ALT 12 U/L (13-61)
[2025-03-20 10:55] LABS: TOT PROT 6.7 g/dl (6.4-8.2)
[2025-03-20 10:56] LABS: ALK PHOS 99 U/L (45-117)
[2025-03-20 10:58] LABS: GLUCOSE,RANDOM 577 mg/dL (74-106)
[2025-03-20] MEDS ORDERED: INSULIN GLARGINE (LANTUS) 100 UNITS/ML UNITS SQ ONE (11:36)
[2025-03-20] MEDS: INSULIN GLARGINE (LANTUS) 100 UNITS/ML UNITS SQ ONE (11:48)
[2025-03-20] MEDS: INSULIN ASPART SLIDING SCALE (NOVOLOG) 1 VIAL SQ SCH (12:06)
[2025-03-20] MEDS: SODIUM CHLORIDE 1,000 ML IV SCH (12:06)
[2025-03-20 13:46] LABS: HIV INTERPRETATION NEGATIVE (NEGATIVE)
[2025-03-20 13:50] LABS: HCV DIAGNOSTIC IN-HOUSE W/RFLX NON-REACTIVE (NONREACTIVE)
[2025-03-20] MEDS ORDERED: INSULIN ASPART SLIDING SCALE (NOVOLOG) 1 VIAL SQ ONE (17:20)
[2025-03-20 18:55] VITALS: BMI 25.9
[2025-03-20] MEDS: APIXABAN 5 MG TABLET PO SCH (21:19)
[2025-03-20] MEDS: INSULIN GLARGINE (LANTUS) 100 UNITS/ML UNITS SQ SCH (21:20)
[2025-03-20] MEDS ORDERED: SACUBITRIL/VALSARTAN 49 MG-51 MG TABLET PO SCH (22:00)
[2025-03-20] MEDS ORDERED: CARVEDILOL 6.25 MG TABLET (FP) PO SCH (22:00)
[2025-03-21] MEDS: ATORVASTATIN CA 20 MG TABLET (FP) PO SCH (10:01)
[2025-03-21 10:29] LABS: ABSOLUTE IMMATURE GRANULOCYTES 0.03 x10^3/uL (0.0-0.031); BASOPHILS # 0.02 x10^3/uL (0.01-0.08); EOSINOPHIL % 2.2 % (0.8-7.0); EOSINOPHILS # 0.17 x10^3/uL (0.04-0.54); MCHC 31.8 g/dl (32.3-36.5); MEAN CELL VOLUME 85.9 fl (79.0-92.2); MEAN PLT VOLUME 12.2 fl (9.4-12.4); MONOCYTE # 0.72 x10^3/uL (0.30-0.82); MONOCYTE % 9.4 % (5.3-12.2); RDW 13.8 % (12.2-16.6)
[2025-03-21 11:04] LABS: CO2 25.0 mmol/L (21-32); GLUCOSE,RANDOM 249.0 mg/dL (74-106)
[2025-03-21 11:06] LABS: SGPT/ALT 10.0 U/L (13-61)
[2025-03-21 11:07] LABS: CREATININE 1.5 mg/dL (0.55-1.3); SGOT/AST 11.0 U/L (15-37)
[2025-03-21 11:08] LABS: LDL CHOLESTEROL (ONLY SJRH) 107.0 mg/dL (5-100); TOT PROT 5.9 g/dl (6.4-8.2)
[2025-03-21 11:09] LABS: ALK PHOS 84.0 U/L (45-117)
[2025-03-21] MEDS: CEFTRIAXONE 1 GM in DEXTROSE 5%-WATER - 50 ML IVPB SCH (11:37)
[2025-03-21] MEDS: SODIUM CHLORIDE 1,000 ML IV SCH (17:50)
[2025-03-21] MEDS: guaiFENesin 200 MG/10 ML 10 ML UNIT-DOSE CUPS PO PRN (18:34)
[2025-03-22] MEDS: MELATONIN 5 MG TABLETS PO ONE (22:47)
[2025-03-22] MEDS: INSULIN GLARGINE (LANTUS) 100 UNITS/ML UNITS SQ SCH (22:47)
[2025-03-22] MEDS: guaiFENesin/D-METHORPHAN HB 10 ML UNIT-DOSE CUPS PO PRN (23:07)
[2025-03-23] MEDS: glipiZIDE-XL 5 MG TAB.ER.24 PO SCH (06:05)
[2025-03-23 08:36] LABS: ABSOLUTE IMMATURE GRANULOCYTES 0.02 x10^3/uL (0.0-0.031); BASOPHILS # 0.02 x10^3/uL (0.01-0.08); EOSINOPHIL % 4.1 % (0.8-7.0); EOSINOPHILS # 0.20 x10^3/uL (0.04-0.54); MCHC 32.1 g/dl (32.3-36.5); MEAN CELL VOLUME 85.5 fl (79.0-92.2); MEAN PLT VOLUME 11.0 fl (9.4-12.4); MONOCYTE # 0.63 x10^3/uL (0.30-0.82); MONOCYTE % 12.8 % (5.3-12.2); RDW 13.5 % (12.2-16.6)
[2025-03-23 10:03] LABS: CO2 22.0 mmol/L (21-32); GLUCOSE,RANDOM 114.0 mg/dL (74-106)
[2025-03-23 10:06] LABS: CREATININE 1.3 mg/dL (0.55-1.3); SGOT/AST 24.0 U/L (15-37); SGPT/ALT 18.0 U/L (13-61)
[2025-03-23 10:07] LABS: TOT PROT 6.4 g/dl (6.4-8.2)
[2025-03-23 10:09] LABS: ALK PHOS 89.0 U/L (45-117)
[2025-03-23] MEDS ORDERED: guaiFENesin/D-METHORPHAN HB 10 ML UNIT-DOSE CUPS PO PRN (21:25)
[2025-03-23] MEDS ORDERED: ACETAMINOPHEN 325 MG TABLET (FP) PO PRN (21:25)
[2025-03-23] MEDS: INSULIN GLARGINE (LANTUS) 100 UNITS/ML UNITS SQ SCH (22:11)
[2025-03-23] MEDS: APIXABAN 5 MG TABLET PO SCH (22:11)
[2025-03-23] MEDS: INSULIN ASPART SLIDING SCALE (NOVOLOG) 1 VIAL SQ SCH (22:21)
[2025-03-24] MEDS: MELATONIN 5 MG TABLETS PO PRN (00:24)
[2025-03-24] MEDS: glipiZIDE-XL 5 MG TAB.ER.24 PO SCH (06:05)
[2025-03-24] MEDS: CEFTRIAXONE 1 GM in DEXTROSE 5%-WATER - 50 ML IVPB SCH (09:58)
[2025-03-24 13:51] VITALS: BP 110/77; PULSE 99; RESP 16; TEMP 97.9
[2025-03-24] MEDS ORDERED: ATORVASTATIN CA 20 MG TABLET (FP) PO SCH (22:00)
== END 2025-03-24 16:32 | disposition home or self-care (01) | DRG 638 ==
LOC: JER 05:13 → JERBED 07:19 → J6W TELE 13:31 → J5S 03-23 21:20
PROVIDERS: ADMIT Internal Medicine; ATTEND Internal Medicine
DX: E11.65 Type 2 diabetes mellitus with hyperglycemia (principal); E87.0 Hyperosmolality and hypernatremia; I69.351 Hemiplegia and hemiparesis following cerebral infarction affecting right dominant side; I50.22 Chronic systolic (congestive) heart failure; N17.9 Acute kidney failure, unspecified; N39.0 Urinary tract infection, site not specified; I13.0 Hypertensive heart and chronic kidney disease with heart failure and stage 1 through stage 4 chronic kidney disease, or unspecified chronic kidney disease; I48.91 Unspecified atrial fibrillation; N18.9 Chronic kidney disease, unspecified; E87.5 Hyperkalemia; Z95.2 Presence of prosthetic heart valve
CPT/HCPCS: 36415; 70450-TC; 71045-TC-FY; 80053; 80061; 81003; 82010; 82803; 82962; 83036; 83605; 83735; 83880; 83930; 84100; 84443; 84479; 84484; 85025; 85610; 85730; 86803; 86850; 86900; 86901; 87040; 87086; 87389; 87637-QW; 93005; 93010; 93306-TC; 97116-GP; 97161-GP; 99285-25